=== PATIENT | female | born 1955 | race Caucasian/White ===

== ENCOUNTER 2020-02-03 12:40 | Inpatient (IN) | payer MEDICARE ==
[2020-02-04 00:16] VITALS: BP 100/52
[2020-02-04] MEDS ORDERED: Maalox 30 mL Cup PO PRN (00:27)
[2020-02-04] MEDS ORDERED: Magnesium Hydroxide (MOM) 30 mL UDC PO PRN (00:27)
[2020-02-04] MEDS ORDERED: GLUCAGON HCl 1 MG KIT IM PRN (01:52)
[2020-02-04] MEDS: INSULIN LISPRO SLIDING SCALE 100 UNITS/ML UNIT SUBQ SCH ×4 (07:30→20:50)
[2020-02-04] MEDS: Multivitamin Tab PO SCH (09:09)
[2020-02-04 15:00] LABS: CHOLESTEROL 152 mg/dL (<200)
[2020-02-04 15:01] LABS: LDL CHOLESTEROL 90 mg/dL (75-193); TRIGLYCERIDES 100 mg/dL (<150)
--- NOTE | 2020-02-04 15:29 | History and Physical ---
History of Present Illness - HPI Chief Complaint: Psychosis HPI: * Transferred from [facility] * Patient was transferred on a 5150 hold Vital Signs: Last Vital Signs Temp 97.9 F 02/04/20 06:26 Pulse 96 02/04/20 06:26 Resp 20 02/04/20 06:26 BP 121/83 02/04/20 06:26 Pulse Ox 96 02/04/20 06:26 Past Medical History Cardiovascular: Report: No Pertinent Hx Pulmonary: Report: No Pertinent Hx [employer]PER[employer]OR: Report: No Pertinent Hx GI: Report: No Pertinent Hx Psych: Report: Anxiety, Depression Infectious Disease: Report: Other (UTI) Endocrine: Report: Diabetes Family Medical History - Family Member Mother History Unknown: Yes Ethnicity: Unknown Living Status: Unknown Hx Family Cancer: (unknown) Hx Family Coronary Artery Disease: (unknown) Hx Family Congestive Heart Failure: (unknown) Hx Family Hypertension: (unknown) Hx Family Stroke: (unknown) Hx Family Diabetes: (unknown) Hx Family Seizures: (unknown) Hx Family Dementia: (unknown) Hx Family AIDS: (unknown) Hx Family COPD: (unknown) Hx Family Hepatitis: (unknown) Hx Family Psychiatric Problems: (unknown) Hx Family Tuberculosis: (unknown) Social History Smoke: No Alcohol: Occassional Drugs: Marijuana Lives: With Family - Allergies Allergies/Adverse Reactions: Allergies Allergy/AdvReac Type Severity Reaction Status Date / Time No Known Allergies Allergy Verified 02/04/20 00:08 Review of Systems - Review of Systems Constitutional: Report: No Significant Eyes: Report: No Significant ENT: Report: No Significant Respiratory: Report: No Significant Cardiovascular: Report: No Significant Gastrointestinal: Report: No Significant Genitourinary: Report: No Significant Musculoskeletal: Report: No Significant Skin: Report: No Significant Neurological: Report: No Significant Physical Exam - Physical Exam HEENT: Report: Ears Nose Throat within normal limits, Pharnyx within normal limits Neck: Report: Within normal limits Cardiovascular Systems: Report: Regular, Rate and Rhythm, no murmurs noted Respiratory: Report: Clear to Auscultation of lung erazo, Breath Sounds are within normal limits Abdomen: Report: Non-tender to palpation, Bowel Sounds are within normal limits Back: Report: Inspection of back is within normal limits. Extremities: Report: Non-tender to palpation., Patient had full range of motion , No pedal edema was noted on inspection Skin: Report: Color of skin is within normal limits, Warm, Dry, No Rashes noted of the skin Neuro/Psych: Report: CN II-XII intact, No sensory deficit - Lab Results All Lab Results last 24 hours: Laboratory Results - last 24 hr 02/03/20 02/04/20 02/04/20 23:09 06:18 12:16 POC Glucose 112 H 85 Triglycerides 100 Cholesterol 152 LDL Cholesterol Direct 90 HDL Cholesterol 41 - Assessment Assessment: * Manic Disorder * UTI * DM * Anxiety * Depression * 5150 Hold * Alcohol Abuse * Marijuana Abuse - Plan Plan: * Admitted to GeroPsych Unit to [facility] * Psychiatry Consult * Continue home meds * Obtain labs Cranial Nerve Assessment - CRANIAL NERVES alcohol swab:: Yes Distinguishes movements in peripheral field.:: Yes up, down, sideways:: Yes on forehead, cheeks and chin, chews symmetrically:: Yes FACIAL VII: upper: Frowns Symmetrically:: Yes FACIAL VII: Lower: Smiles Symmetrically:: Yes both ears:: Yes GLOSS-PHARYNGEAL IX: Has gag reflex:: Yes VAGUS X: Can make guttural sounds:: Yes ACCESSORY XI: Shrugs shoulders symmetrically:: Yes tremors or fasciculation's:: Yes - MOTOR spasticity, cogwheel, atrophy, tremor, asterixis, other: Yes - COORDINATION Finger to nose, heel to vagras, RUBEN, gait, Romberg: Yes - SENSORY signs, Brudzinski, Kernig, neck rigidity:: Yes - REFLEXES Brachioradials Right:: Yes Brachioradials Left:: Yes Biceps Right:: Yes Biceps Left:: Yes Triceps Right:: Yes Triceps Left:: Yes Knee Right:: Yes Knee Left:: Yes Ankle Right:: Yes Ankle Left:: Yes Babinski Right:: No Babinski Left:: No
--- NOTE | 2020-02-05 04:20 | Psychiatric Evaluation ---
DATE OF SERVICE: 02/04/2020 The patient was seen and evaluated today. Initial psychiatric evaluation covering for Dr. Arreola. IDENTIFYING DATA: This is a 64-year-old female with a history of schizophrenia, brought here in the Emergency Department and medically cleared from [facility]. She did not want to stay in home. She was found sleeping in someone's garage, brought back for management and aggressive. Today on [id number] evaluation, the patient reports COVID, pedophilia. "I have reported to the FBI and the FBI is underway." PAST MEDICAL HISTORY: History of hysterectomy. PAST PSYCHIATRIC HISTORY: History of psychosis. FAMILY PSYCHIATRIC HISTORY: Denied. SUBSTANCE ABUSE HISTORY: The patient denies illicit drug use, occasional marijuana. ALLERGIES TO MEDICATIONS: NKDA. Further evaluation of the medical history, has a history in the past of diabetes, UTI, hernia. LABORATORY DATA: Reviewed. CURRENT MEDICATIONS: Reviewed. STRENGTHS: Good support, resources. WEAKNESSES: Poor coping skills. ESTIMATED LENGTH OF STAY: Between 5-10 days. PROGNOSIS: Fair. MENTAL STATUS EXAMINATION: Paranoid, delusional, talking about the FBI, COVID, pedophilia, disorganized, poor insight, poor judgment, poor impulse control. PRIMARY DIAGNOSIS: Schizophrenia. SECONDARY DIAGNOSIS: None. MEDICAL DIAGNOSIS: Per medical team. PLAN: 1. Admit. 2. Start Seroquel. 3. Obtain more collateral baseline information. 4. We will continue with both individual and group therapy. [facility]# [id number]
[2020-02-05] MEDS: INSULIN LISPRO SLIDING SCALE 100 UNITS/ML UNIT SUBQ SCH ×4 (06:38→21:01)
[2020-02-05] MEDS: Multivitamin Tab PO SCH (09:39)
--- NOTE | 2020-02-05 22:47 | Progress Notes ---
DATE: 02/05/2020 SUBJECTIVE: The patient was seen and evaluated. The patient's chart reviewed. Today on [id number] evaluation, the patient reports that she is watching all the ____ with COVID. She reports that people are trying to poison her, specifically, the nurses with COVID. EXAMINATION: Delusional, believing that people are trying to poison her with COVID. ASSESSMENT AND PLAN: Aggressive ____ believing that people are trying to poison her. We will continue increasing Seroquel to 50. [facility]# [id number]
[2020-02-06] MEDS: INSULIN LISPRO SLIDING SCALE 100 UNITS/ML UNIT SUBQ SCH ×4 (06:38→20:59)
[2020-02-06] MEDS: Multivitamin Tab PO SCH (08:11)
[2020-02-06 12:45] LABS: WHITE BLOOD COUNT 11.3 K/uL (4.8-10.8)
[2020-02-06 12:46] LABS: % NEUTROPHILS 75.8 % (40-70); BASOPHILS % (AUTO) 0.5 % (0.0-2.0); EOSINOPHILS # (AUTO) 0.1 K/uL (0.0-0.4); EOSINOPHILS % (AUTO) 1.2 % (0-4); HEMATOCRIT 46.3 % (36-48); HEMOGLOBIN 15.8 g/dL (12.0-16.0); LYMPHOCYTES # (AUTO) 1.7 K/uL (1.0-5.5); LYMPHOCYTES % (AUTO) 15.2 % (20.5-51.5); MEAN CORPUSCULAR HEMOGLOBIN 32 pg (27-31); MEAN CORPUSCULAR HGB CONC 34 % (32-36); MEAN CORPUSCULAR VOLUME 94 fL (79.0-98.0); MONOCYTES # (AUTO) 0.8 K/uL (0.0-1.0); MONOCYTES % (AUTO) 7.3 % (1.7-9.3); NEUTROPHILS # (AUTO) 8.5 K/uL (1.8-7.7); PLATELET COUNT 228 K/uL (130-430); RED BLOOD COUNT 4.95 MIL/uL (4.2-6.2); RED CELL DISTRIBUTION WIDTH 13.3 % (9.0-15.0)
[2020-02-06 12:47] LABS: BASOPHILS # (AUTO) 0.1 K/uL (0.0-0.2)
[2020-02-06 13:30] LABS: BILIRUBIN,TOTAL 0.9 mg/dL (0.0-1.0); CALCIUM SERUM 9.2 mg/dL (8.4-10.2); CREATININE - SERUM 1.03 mg/dL (0.70-1.30); POTASSIUM SERUM 3.1 mmol/L (3.5-5.1); TOTAL PROTEIN,SERUM 7.6 g/dL (6.4-8.3)
--- NOTE | 2020-02-06 14:04 | Internal Medicine Prog Note ---
Internal Medicine Subjective - Subjective Service Date: 02/06/20 Patient seen and examined:: without staff Patient is:: awake, interactive, in bed Internal Medicine Objective - Results Result Diagrams: 02/06/20 11:17 02/06/20 11:17 Recent Labs: Laboratory Last Values WBC 11.3 K/uL (4.8-10.8) H 02/06/20 11:17 RBC 4.95 MIL/uL (4.2-6.2) 02/06/20 11:17 Hgb 15.8 g/dL (12.0-16.0) 02/06/20 11:17 Hct 46.3 % (36-48) 02/06/20 11:17 MCV 94 fL (79.0-98.0) 02/06/20 11:17 MCH 32 pg (27-31) H 02/06/20 11:17 MCHC 34 % (32-36) 02/06/20 11:17 RDW 13.3 % (9.0-15.0) 02/06/20 11:17 Plt Count 228 K/uL (130-430) 02/06/20 11:17 MPV 10.7 fl (7.4-10.4) H 02/06/20 11:17 Neut % (Auto) 75.8 % (40-70) H 02/06/20 11:17 Lymph % (Auto) 15.2 % (20.5-51.5) L 02/06/20 11:17 [place] % (Auto) 7.3 % (1.7-9.3) 02/06/20 11:17 Eos % (Auto) 1.2 % (0-4) 02/06/20 11:17 Baso % (Auto) 0.5 % (0.0-2.0) 02/06/20 11:17 Neut # (Auto) 8.5 K/uL (1.8-7.7) H 02/06/20 11:17 Lymph # (Auto) 1.7 K/uL (1.0-5.5) 02/06/20 11:17 [place] # (Auto) 0.8 K/uL (0.0-1.0) 02/06/20 11:17 Eos # (Auto) 0.1 K/uL (0.0-0.4) 02/06/20 11:17 Baso # (Auto) 0.1 K/uL (0.0-0.2) 02/06/20 11:17 Sodium 139 mmol/L (136-145) 02/06/20 11:17 Potassium 3.1 mmol/L (3.5-5.1) L 02/06/20 11:17 Chloride 101 mmol/L (98-107) 02/06/20 11:17 Carbon Dioxide 21 mmol/L (23-29) L 02/06/20 11:17 Anion Gap 20 (5-15) H 02/06/20 11:17 BUN 20 mg/dL (8-21) 02/06/20 11:17 Creatinine 1.03 mg/dL (0.70-1.30) 02/06/20 11:17 Glucose 75 mg/dL (70-99) 02/06/20 11:17 POC Glucose 100 MG/DL (70 - 105) 02/06/20 11:03 Calcium 9.2 mg/dL (8.4-10.2) 02/06/20 11:17 Total Bilirubin 0.9 mg/dL (0.0-1.0) 02/06/20 11:17 AST 33 U/L (10-37) 02/06/20 11:17 ALT 25 U/L (12-78) 02/06/20 11:17 Alkaline Phosphatase 89 U/L (46-116) 02/06/20 11:17 Total Protein 7.6 g/dL (6.4-8.3) 02/06/20 11:17 Albumin 3.8 g/dL (3.4-5.0) 02/06/20 11:17 Triglycerides 100 mg/dL (<150) 02/04/20 12:16 Cholesterol 152 mg/dL (<200) 02/04/20 12:16 LDL Cholesterol Direct 90 mg/dL (75-193) 02/04/20 12:16 HDL Cholesterol 41 mg/dL (23-92) 02/04/20 12:16 - Physical Exam Vitals and I&O: Vital Signs Temp 0 F 02/06/20 06:49 Pulse 90 02/05/20 06:11 Resp 17 02/05/20 20:00 BP 132/84 02/05/20 06:11 Pulse Ox 99 02/05/20 06:11 Intake & Output 02/05/20 02/06/20 02/06/20 18:59 06:59 18:59 Intake Total 800 240 Balance 800 240 Intake: Oral 800 240 Other: # Voids 3 3 # Bowel Movements 0 0 Stool Characteristics Soft Soft Soft Formed Brown Active Medications: Current Medications Acetaminophen (Tylenol) 650 mg PO Q4H PRN PRN Reason: Pain (Mild 1-3) Stop: 04/04/20 00:26 Al Hydrox/Mg Hydrox/Simethicone (Maalox) 30 ml PO Q4HR PRN PRN Reason: GI DISTRESS Stop: 04/04/20 00:26 Dextrose (Glutose 40%) 18.75 gm PO PRN PRN PRN Reason: Blood Glucose less than 70 Stop: 04/04/20 01:51 Glucagon (Glucagen) 1 mg IM PRN PRN PRN Reason: Blood Glucose less than 70 Stop: 04/04/20 01:51 Insulin Human Lispro (Humalog Insulin Sliding Scale) 0 units SUBQ [facility]; Protocol Stop: 04/04/20 07:29 Last Admin: 02/06/20 11:10 Dose: Not Given Lorazepam (Ativan) 0.5 mg PO Q4HR PRN; Protocol PRN Reason: Agitation Stop: 03/05/20 00:26 Magnesium Hydroxide (Milk Of Magnesia) 30 ml PO HS PRN PRN Reason: Constipation Multivitamins/Vitamin C (Theragran) 1 tab PO DAILY ASIF Stop: 04/04/20 08:59 Last Admin: 02/06/20 08:11 Dose: Not Given Quetiapine Fumarate (Seroquel) 50 mg PO HS ASIF; Protocol Stop: 04/05/20 20:59 Last Admin: 02/05/20 21:01 Dose: Not Given Zolpidem Tartrate (Ambien) 5 mg PO HS PRN PRN Reason: Insomnia Stop: 04/04/20 00:26 General: weak HEENT: NC/AT, PERRLA Neck: Supple Lungs: CTAB Cardiovascular: RRR, Normal S1, Normal S2 Abdomen: soft Extremities: clear Internal Medicine Assmt/Plan - Assessment Assessment: 1. DM/HTN 2. Sailaja - Plan Plan: check hga1c check lipid panel continue sliding scale insulin requested home meds d/w r.n. reviewed complete medical records
--- NOTE | 2020-02-06 20:48 | Progress Notes ---
DATE: 02/06/2020 SUBJECTIVE: Case was discussed with staff of the patient, reviewed records. This is a 64-year-old female who was admitted on 02/03/2020 with a history of schizophrenia, came from [facility] to the medical floor. The patient does not want to stay in her home. She was found sleeping in someone's garage, brought back for management of her aggressive behavior. The patient reports COVID, pedophilia. I have reported to the FBI and the FBI is underway. The patient denies drug use. She has no known drug allergy. The patient apparently also has a history of diabetes, UTI, and hernia. The patient was seen by Dr. Romero who initiated the patient on Seroquel 50 mg at bedtime, according to staff, she has been refusing it since admission. The patient when I tried talked to her, she was angry, irritable, and paranoid. She reported that this is pedophilia. She does not trust no one. She is not taking any medication. She does not trust her medication. I don't trust anybody. I do not need to be on medication. Very poor insight, unpredictable, impulsive, needing redirection. Her medication plan was initiated yesterday, so she continues to refuse, we may have to release her. We will continue outpatient group therapy, milieu therapy, and adjust medication as needed. JOB# [id number]
[2020-02-07] MEDS: INSULIN LISPRO SLIDING SCALE 100 UNITS/ML UNIT SUBQ SCH ×4 (06:34→20:31)
[2020-02-07] MEDS: Multivitamin Tab PO SCH (08:01)
[2020-02-07 12:40] LABS: BLOOD, URINE TRACE (NEGATIVE); GLUCOSE,URINE NEGATIVE (NEGATIVE); URINE BILIRUBIN 1+ (NEGATIVE); URINE CLARITY HAZY (CLEAR); URINE COLOR YELLOW (YELLOW); URINE KETONE 3+ (NEGATIVE)
[2020-02-07 12:41] LABS: LEUKOCYTE ESTERASE ,URINE NEGATIVE (NEGATIVE); PROTEIN URINE 1+ (NEGATIVE); URINE NITRATE NEGATIVE (NEGATIVE); UROBILINOGEN,URINE 0.2 (0.2-1.0)
--- NOTE | 2020-02-07 14:46 | Internal Medicine Prog Note ---
Internal Medicine Subjective - Subjective Service Date: 02/07/20 Patient seen and examined:: without staff Patient is:: awake, interactive, in bed Per staff patient has:: no adverse event, no episodes of fall (no fevers, no cough, no sob) Internal Medicine Objective - Results Result Diagrams: 02/06/20 11:17 02/06/20 11:17 Recent Labs: Laboratory Last Values WBC 11.3 K/uL (4.8-10.8) H 02/06/20 11:17 RBC 4.95 MIL/uL (4.2-6.2) 02/06/20 11:17 Hgb 15.8 g/dL (12.0-16.0) 02/06/20 11:17 Hct 46.3 % (36-48) 02/06/20 11:17 MCV 94 fL (79.0-98.0) 02/06/20 11:17 MCH 32 pg (27-31) H 02/06/20 11:17 MCHC 34 % (32-36) 02/06/20 11:17 RDW 13.3 % (9.0-15.0) 02/06/20 11:17 Plt Count 228 K/uL (130-430) 02/06/20 11:17 MPV 10.7 fl (7.4-10.4) H 02/06/20 11:17 Neut % (Auto) 75.8 % (40-70) H 02/06/20 11:17 Lymph % (Auto) 15.2 % (20.5-51.5) L 02/06/20 11:17 [place] % (Auto) 7.3 % (1.7-9.3) 02/06/20 11:17 Eos % (Auto) 1.2 % (0-4) 02/06/20 11:17 Baso % (Auto) 0.5 % (0.0-2.0) 02/06/20 11:17 Neut # (Auto) 8.5 K/uL (1.8-7.7) H 02/06/20 11:17 Lymph # (Auto) 1.7 K/uL (1.0-5.5) 02/06/20 11:17 [place] # (Auto) 0.8 K/uL (0.0-1.0) 02/06/20 11:17 Eos # (Auto) 0.1 K/uL (0.0-0.4) 02/06/20 11:17 Baso # (Auto) 0.1 K/uL (0.0-0.2) 02/06/20 11:17 Sodium 139 mmol/L (136-145) 02/06/20 11:17 Potassium 3.1 mmol/L (3.5-5.1) L 02/06/20 11:17 Chloride 101 mmol/L (98-107) 02/06/20 11:17 Carbon Dioxide 21 mmol/L (23-29) L 02/06/20 11:17 Anion Gap 20 (5-15) H 02/06/20 11:17 BUN 20 mg/dL (8-21) 02/06/20 11:17 Creatinine 1.03 mg/dL (0.70-1.30) 02/06/20 11:17 Glucose 75 mg/dL (70-99) 02/06/20 11:17 POC Glucose 100 MG/DL (70 - 105) 02/06/20 11:03 Calcium 9.2 mg/dL (8.4-10.2) 02/06/20 11:17 Total Bilirubin 0.9 mg/dL (0.0-1.0) 02/06/20 11:17 AST 33 U/L (10-37) 02/06/20 11:17 ALT 25 U/L (12-78) 02/06/20 11:17 Alkaline Phosphatase 89 U/L (46-116) 02/06/20 11:17 Total Protein 7.6 g/dL (6.4-8.3) 02/06/20 11:17 Albumin 3.8 g/dL (3.4-5.0) 02/06/20 11:17 Triglycerides 100 mg/dL (<150) 02/04/20 12:16 Cholesterol 152 mg/dL (<200) 02/04/20 12:16 LDL Cholesterol Direct 90 mg/dL (75-193) 02/04/20 12:16 HDL Cholesterol 41 mg/dL (23-92) 02/04/20 12:16 Urine Color YELLOW (YELLOW) 02/06/20 11:00 Urine Clarity HAZY (CLEAR) H 02/06/20 11:00 Urine pH 6.0 (5.0-8.0) 02/06/20 11:00 Ur Specific [place] >=1.030 (1.005-1.030) H 02/06/20 11:00 Urine Protein 1+ (NEGATIVE) H 02/06/20 11:00 Urine Ketones 3+ (NEGATIVE) H 02/06/20 11:00 Urine Blood TRACE (NEGATIVE) H 02/06/20 11:00 Urine Nitrate NEGATIVE (NEGATIVE) 02/06/20 11:00 Urine Bilirubin 1+ (NEGATIVE) H 02/06/20 11:00 Urine Urobilinogen 0.2 (0.2-1.0) 02/06/20 11:00 Ur Leukocyte Esterase NEGATIVE (NEGATIVE) 02/06/20 11:00 Urine Glucose NEGATIVE (NEGATIVE) 02/06/20 11:00 - Physical Exam Vitals and I&O: Vital Signs Temp 98.3 F 02/07/20 06:23 Pulse 76 02/07/20 06:23 Resp 18 02/07/20 08:00 BP 129/89 02/07/20 06:23 Pulse Ox 97 02/07/20 06:23 Intake & Output 02/06/20 02/07/20 02/07/20 18:59 06:59 18:59 Intake Total 450 240 Balance 450 240 Intake: Oral 450 240 Other: # Voids 3 3 # Bowel Movements 0 0 Stool Characteristics Soft Soft Formed Brown Active Medications: Current Medications Acetaminophen (Tylenol) 650 mg PO Q4H PRN PRN Reason: Pain (Mild 1-3) Stop: 04/04/20 00:26 Al Hydrox/Mg Hydrox/Simethicone (Maalox) 30 ml PO Q4HR PRN PRN Reason: GI DISTRESS Stop: 04/04/20 00:26 Dextrose (Glutose 40%) 18.75 gm PO PRN PRN PRN Reason: BS Below 70 if tolerate po Stop: 04/04/20 01:51 Glucagon (Glucagen) 1 mg IM PRN PRN PRN Reason: BS Below 70 if not tolerate po Stop: 04/04/20 01:51 Insulin Human Lispro (Humalog Insulin Sliding Scale) 0 units SUBQ ACHS ASIF; Protocol Stop: 04/04/20 07:29 Last Admin: 02/07/20 12:23 Dose: Not Given Lorazepam (Ativan) 0.5 mg PO Q4HR PRN; Protocol PRN Reason: Agitation Stop: 03/05/20 00:26 Magnesium Hydroxide (Milk Of Magnesia) 30 ml PO HS PRN PRN Reason: Constipation Multivitamins/Vitamin C (Theragran) 1 tab PO DAILY ASIF Stop: 04/04/20 08:59 Last Admin: 02/07/20 08:01 Dose: Not Given Quetiapine Fumarate (Seroquel) 50 mg PO HS ASIF; Protocol Stop: 04/05/20 20:59 Last Admin: 02/06/20 20:59 Dose: Not Given Zolpidem Tartrate (Ambien) 5 mg PO HS PRN PRN Reason: Insomnia Stop: 04/04/20 00:26 General: weak HEENT: NC/AT, PERRLA Neck: Supple Lungs: CTAB Cardiovascular: RRR, Normal S1, Normal S2 Abdomen: soft Extremities: clear Internal Medicine Assmt/Plan - Assessment Assessment: 1. DM/HTN 2. Rule out Covid-19 - Plan Plan: check hga1c check lipid panel continue sliding scale insulin requested home meds Covid-19 PCR test d/w r.n. reviewed complete medical records
--- NOTE | 2020-02-07 21:03 | Progress Notes ---
DATE: 02/07/2020 Case was discussed with staff of the patient, reviewed records. The patient has been refusing medications. She is paranoid. When I talked to her today, I told her that we talked yesterday. She cannot remember me. She told me that I am fraudulent, I am just billing her insurance without seeing her. Continues to have poor insight, paranoid, unable to make safe plan for self-care, easily agitated. She apparently refused to allow her to have any access to the unit or for the staff to contact him and he apparently found out from the other hospital where she is and he called and was upset. The patient continues to refuse her medications. If she continues to refuse, I will be initiating a Riese on her. We will continue outpatient group therapy, milieu therapy, adjust the medication as needed. JOB# [id number]
[2020-02-08] MEDS: INSULIN LISPRO SLIDING SCALE 100 UNITS/ML UNIT SUBQ SCH ×4 (06:32→21:28)
[2020-02-08] MEDS: Multivitamin Tab PO SCH (08:21)
--- NOTE | 2020-02-08 11:40 | Progress Notes ---
DATE: 02/08/2020 Case was discussed with staff of the patient, reviewed records. The patient seems to be delusional and paranoid. When I tried talk to her, she apparently had her breakfast tray and she eat none of it. She said I do not need that. She said I can see what's in it. She continues to talk about her family being peophiles and that she will not talk to them that she is scared of them. Does not want anything to have to do them including her . The patient is unable to make safe plan for self-care. The patient was found sleeping in someone's garage, was acting aggressive with a history of schizophrenia. The patient believes that she reported this to the FBI and they are underway. The patient is refusing medication again. When I asked if she take she said she will take nothing. She does not trust anybody. She believes she does not need any medication, so this has been brought up with her almost on a daily basis and she does not believe she needs to be on medication, she would not tell me what medication she will be willing to take, i listed side effects and alternatives so I will be initiating a reise. We will continue outpatient group therapy, milieu therapy, and adjust medications as needed. JOB# [id number] KENNY
--- NOTE | 2020-02-08 17:59 | Internal Medicine Prog Note ---
Internal Medicine Subjective - Subjective Service Date: 02/08/20 Patient is:: awake, interactive, in bed Per staff patient has:: no adverse event, no episodes of fall (no fevers, no cough, no sob) Internal Medicine Objective - Results Result Diagrams: 02/06/20 11:17 02/06/20 11:17 Recent Labs: Laboratory Last Values WBC 11.3 K/uL (4.8-10.8) H 02/06/20 11:17 RBC 4.95 MIL/uL (4.2-6.2) 02/06/20 11:17 Hgb 15.8 g/dL (12.0-16.0) 02/06/20 11:17 Hct 46.3 % (36-48) 02/06/20 11:17 MCV 94 fL (79.0-98.0) 02/06/20 11:17 MCH 32 pg (27-31) H 02/06/20 11:17 MCHC 34 % (32-36) 02/06/20 11:17 RDW 13.3 % (9.0-15.0) 02/06/20 11:17 Plt Count 228 K/uL (130-430) 02/06/20 11:17 MPV 10.7 fl (7.4-10.4) H 02/06/20 11:17 Neut % (Auto) 75.8 % (40-70) H 02/06/20 11:17 Lymph % (Auto) 15.2 % (20.5-51.5) L 02/06/20 11:17 [place] % (Auto) 7.3 % (1.7-9.3) 02/06/20 11:17 Eos % (Auto) 1.2 % (0-4) 02/06/20 11:17 Baso % (Auto) 0.5 % (0.0-2.0) 02/06/20 11:17 Neut # (Auto) 8.5 K/uL (1.8-7.7) H 02/06/20 11:17 Lymph # (Auto) 1.7 K/uL (1.0-5.5) 02/06/20 11:17 [place] # (Auto) 0.8 K/uL (0.0-1.0) 02/06/20 11:17 Eos # (Auto) 0.1 K/uL (0.0-0.4) 02/06/20 11:17 Baso # (Auto) 0.1 K/uL (0.0-0.2) 02/06/20 11:17 Sodium 139 mmol/L (136-145) 02/06/20 11:17 Potassium 3.1 mmol/L (3.5-5.1) L 02/06/20 11:17 Chloride 101 mmol/L (98-107) 02/06/20 11:17 Carbon Dioxide 21 mmol/L (23-29) L 02/06/20 11:17 Anion Gap 20 (5-15) H 02/06/20 11:17 BUN 20 mg/dL (8-21) 02/06/20 11:17 Creatinine 1.03 mg/dL (0.70-1.30) 02/06/20 11:17 Glucose 75 mg/dL (70-99) 02/06/20 11:17 POC Glucose 100 MG/DL (70 - 105) 02/06/20 11:03 Calcium 9.2 mg/dL (8.4-10.2) 02/06/20 11:17 Total Bilirubin 0.9 mg/dL (0.0-1.0) 02/06/20 11:17 AST 33 U/L (10-37) 02/06/20 11:17 ALT 25 U/L (12-78) 02/06/20 11:17 Alkaline Phosphatase 89 U/L (46-116) 02/06/20 11:17 Total Protein 7.6 g/dL (6.4-8.3) 02/06/20 11:17 Albumin 3.8 g/dL (3.4-5.0) 02/06/20 11:17 Triglycerides 100 mg/dL (<150) 02/04/20 12:16 Cholesterol 152 mg/dL (<200) 02/04/20 12:16 LDL Cholesterol Direct 90 mg/dL (75-193) 02/04/20 12:16 HDL Cholesterol 41 mg/dL (23-92) 02/04/20 12:16 Urine Color YELLOW (YELLOW) 02/06/20 11:00 Urine Clarity HAZY (CLEAR) H 02/06/20 11:00 Urine pH 6.0 (5.0-8.0) 02/06/20 11:00 Ur Specific [place] >=1.030 (1.005-1.030) H 02/06/20 11:00 Urine Protein 1+ (NEGATIVE) H 02/06/20 11:00 Urine Ketones 3+ (NEGATIVE) H 02/06/20 11:00 Urine Blood TRACE (NEGATIVE) H 02/06/20 11:00 Urine Nitrate NEGATIVE (NEGATIVE) 02/06/20 11:00 Urine Bilirubin 1+ (NEGATIVE) H 02/06/20 11:00 Urine Urobilinogen 0.2 (0.2-1.0) 02/06/20 11:00 Ur Leukocyte Esterase NEGATIVE (NEGATIVE) 02/06/20 11:00 Urine Glucose NEGATIVE (NEGATIVE) 02/06/20 11:00 Coronavirus (PCR) Negative (Negative) 02/05/20 15:45 - Physical Exam Vitals and I&O: Vital Signs Temp 97 F 02/08/20 14:00 Pulse 80 02/08/20 14:00 Resp 18 02/08/20 14:00 BP 136/79 02/08/20 14:00 Pulse Ox 98 02/08/20 14:00 Intake & Output 02/07/20 02/08/20 02/08/20 18:59 06:59 18:59 Intake Total 360 240 120 Balance 360 240 120 Intake: Oral 360 240 120 Other: # Voids 3 3 2 # Bowel Movements 0 0 0 Active Medications: Current Medications Acetaminophen (Tylenol) 650 mg PO Q4H PRN PRN Reason: Pain (Mild 1-3) Stop: 04/04/20 00:26 Al Hydrox/Mg Hydrox/Simethicone (Maalox) 30 ml PO Q4HR PRN PRN Reason: GI DISTRESS Stop: 04/04/20 00:26 Dextrose (Glutose 40%) 18.75 gm PO PRN PRN PRN Reason: BS Below 70 if tolerate po Stop: 04/04/20 01:51 Glucagon (Glucagen) 1 mg IM PRN PRN PRN Reason: BS Below 70 if not tolerate po Stop: 04/04/20 01:51 Insulin Human Lispro (Humalog Insulin Sliding Scale) 0 units SUBQ ACHS ASIF; Protocol Stop: 04/04/20 07:29 Last Admin: 02/08/20 17:19 Dose: Not Given Lorazepam (Ativan) 0.5 mg PO Q4HR PRN; Protocol PRN Reason: Agitation Stop: 03/05/20 00:26 Magnesium Hydroxide (Milk Of Magnesia) 30 ml PO HS PRN PRN Reason: Constipation Multivitamins/Vitamin C (Theragran) 1 tab PO DAILY ASIF Stop: 04/04/20 08:59 Last Admin: 02/08/20 08:21 Dose: Not Given Quetiapine Fumarate (Seroquel) 50 mg PO HS ASIF; Protocol Stop: 04/05/20 20:59 Last Admin: 02/07/20 20:31 Dose: Not Given Zolpidem Tartrate (Ambien) 5 mg PO HS PRN PRN Reason: Insomnia Stop: 04/04/20 00:26 General: weak HEENT: NC/AT, PERRLA Neck: Supple Lungs: CTAB Cardiovascular: RRR, Normal S1, Normal S2 Abdomen: soft Extremities: clear Internal Medicine Assmt/Plan - Assessment Assessment: 1. DM 2. HTN - Plan Plan: check lipid panel continue sliding scale insulin requested home meds await Covid-19 PCR test d/w r.n. reviewed complete medical records
[2020-02-09] MEDS: INSULIN LISPRO SLIDING SCALE 100 UNITS/ML UNIT SUBQ SCH ×4 (06:50→21:10)
[2020-02-09] MEDS: Multivitamin Tab PO SCH ×2 (08:29)
--- NOTE | 2020-02-09 12:17 | Progress Notes ---
DATE: 02/09/2020 Case was discussed with staff of the patient, reviewed records. The patient continues to refuse medication. I asked what medication she will take. She then told me, "I do not need medication. I do not need your services." She reports she is not supposed to be on medication, does not need to be here. Continues to be unable to make safe plan for self-care, unpredictable, impulsive, paranoid, asking me to leave. I told her about, tried to explain to her the side effects and trying to give her an alternative medication. She kept telling me go away go away. Unable to understand the situation and we are trying to reach her. We will continue the patient in group therapy, milieu therapy, and adjust medications as needed. JOB# [id number] KENNY
--- NOTE | 2020-02-09 15:56 | Internal Medicine Prog Note ---
Internal Medicine Subjective - Subjective Service Date: 02/09/20 Patient is:: awake, interactive, in bed Per staff patient has:: no adverse event, no episodes of fall (no fevers, no cough, no sob) Internal Medicine Objective - Results Result Diagrams: 02/06/20 11:17 02/06/20 11:17 Recent Labs: Laboratory Last Values WBC 11.3 K/uL (4.8-10.8) H 02/06/20 11:17 RBC 4.95 MIL/uL (4.2-6.2) 02/06/20 11:17 Hgb 15.8 g/dL (12.0-16.0) 02/06/20 11:17 Hct 46.3 % (36-48) 02/06/20 11:17 MCV 94 fL (79.0-98.0) 02/06/20 11:17 MCH 32 pg (27-31) H 02/06/20 11:17 MCHC 34 % (32-36) 02/06/20 11:17 RDW 13.3 % (9.0-15.0) 02/06/20 11:17 Plt Count 228 K/uL (130-430) 02/06/20 11:17 MPV 10.7 fl (7.4-10.4) H 02/06/20 11:17 Neut % (Auto) 75.8 % (40-70) H 02/06/20 11:17 Lymph % (Auto) 15.2 % (20.5-51.5) L 02/06/20 11:17 [place] % (Auto) 7.3 % (1.7-9.3) 02/06/20 11:17 Eos % (Auto) 1.2 % (0-4) 02/06/20 11:17 Baso % (Auto) 0.5 % (0.0-2.0) 02/06/20 11:17 Neut # (Auto) 8.5 K/uL (1.8-7.7) H 02/06/20 11:17 Lymph # (Auto) 1.7 K/uL (1.0-5.5) 02/06/20 11:17 [place] # (Auto) 0.8 K/uL (0.0-1.0) 02/06/20 11:17 Eos # (Auto) 0.1 K/uL (0.0-0.4) 02/06/20 11:17 Baso # (Auto) 0.1 K/uL (0.0-0.2) 02/06/20 11:17 Sodium 139 mmol/L (136-145) 02/06/20 11:17 Potassium 3.1 mmol/L (3.5-5.1) L 02/06/20 11:17 Chloride 101 mmol/L (98-107) 02/06/20 11:17 Carbon Dioxide 21 mmol/L (23-29) L 02/06/20 11:17 Anion Gap 20 (5-15) H 02/06/20 11:17 BUN 20 mg/dL (8-21) 02/06/20 11:17 Creatinine 1.03 mg/dL (0.70-1.30) 02/06/20 11:17 Glucose 75 mg/dL (70-99) 02/06/20 11:17 POC Glucose 100 MG/DL (70 - 105) 02/06/20 11:03 Calcium 9.2 mg/dL (8.4-10.2) 02/06/20 11:17 Total Bilirubin 0.9 mg/dL (0.0-1.0) 02/06/20 11:17 AST 33 U/L (10-37) 02/06/20 11:17 ALT 25 U/L (12-78) 02/06/20 11:17 Alkaline Phosphatase 89 U/L (46-116) 02/06/20 11:17 Total Protein 7.6 g/dL (6.4-8.3) 02/06/20 11:17 Albumin 3.8 g/dL (3.4-5.0) 02/06/20 11:17 Triglycerides 100 mg/dL (<150) 02/04/20 12:16 Cholesterol 152 mg/dL (<200) 02/04/20 12:16 LDL Cholesterol Direct 90 mg/dL (75-193) 02/04/20 12:16 HDL Cholesterol 41 mg/dL (23-92) 02/04/20 12:16 Urine Color YELLOW (YELLOW) 02/06/20 11:00 Urine Clarity HAZY (CLEAR) H 02/06/20 11:00 Urine pH 6.0 (5.0-8.0) 02/06/20 11:00 Ur Specific [place] >=1.030 (1.005-1.030) H 02/06/20 11:00 Urine Protein 1+ (NEGATIVE) H 02/06/20 11:00 Urine Ketones 3+ (NEGATIVE) H 02/06/20 11:00 Urine Blood TRACE (NEGATIVE) H 02/06/20 11:00 Urine Nitrate NEGATIVE (NEGATIVE) 02/06/20 11:00 Urine Bilirubin 1+ (NEGATIVE) H 02/06/20 11:00 Urine Urobilinogen 0.2 (0.2-1.0) 02/06/20 11:00 Ur Leukocyte Esterase NEGATIVE (NEGATIVE) 02/06/20 11:00 Urine Glucose NEGATIVE (NEGATIVE) 02/06/20 11:00 Coronavirus (PCR) Negative (Negative) 02/05/20 15:45 - Physical Exam Vitals and I&O: Vital Signs Temp 98.2 F 02/09/20 14:00 Pulse 90 02/09/20 14:00 Resp 20 02/09/20 14:00 BP 130/88 02/09/20 14:00 Pulse Ox 96 02/09/20 14:00 Intake & Output 02/08/20 02/09/20 02/09/20 18:59 06:59 18:59 Intake Total 520 120 Balance 520 120 Intake: Oral 520 120 Other: # Voids 3 1 # Bowel Movements 0 0 Active Medications: Current Medications Acetaminophen (Tylenol) 650 mg PO Q4H PRN PRN Reason: Pain (Mild 1-3) Stop: 04/04/20 00:26 Al Hydrox/Mg Hydrox/Simethicone (Maalox) 30 ml PO Q4HR PRN PRN Reason: GI DISTRESS Stop: 04/04/20 00:26 Dextrose (Glutose 40%) 18.75 gm PO PRN PRN PRN Reason: BS Below 70 if tolerate po Stop: 04/04/20 01:51 Glucagon (Glucagen) 1 mg IM PRN PRN PRN Reason: BS Below 70 if not tolerate po Stop: 04/04/20 01:51 Insulin Human Lispro (Humalog Insulin Sliding Scale) 0 units SUBQ ACHS ASIF; Protocol Stop: 04/04/20 07:29 Last Admin: 02/09/20 11:25 Dose: Not Given Lorazepam (Ativan) 0.5 mg PO Q4HR PRN; Protocol PRN Reason: Agitation Stop: 03/05/20 00:26 Magnesium Hydroxide (Milk Of Magnesia) 30 ml PO HS PRN PRN Reason: Constipation Multivitamins/Vitamin C (Theragran) 1 tab PO DAILY ASIF Stop: 04/04/20 08:59 Last Admin: 02/09/20 08:29 Dose: Not Given Quetiapine Fumarate (Seroquel) 50 mg PO HS ASIF; Protocol Stop: 04/05/20 20:59 Last Admin: 02/08/20 21:28 Dose: Not Given Zolpidem Tartrate (Ambien) 5 mg PO HS PRN PRN Reason: Insomnia Stop: 04/04/20 00:26 General: weak HEENT: NC/AT, PERRLA Neck: Supple Lungs: CTAB Cardiovascular: RRR, Normal S1, Normal S2 Abdomen: soft Extremities: clear Internal Medicine Assmt/Plan - Assessment Assessment: 1. DM 2. HTN - Plan Plan: check hemoglobin a1c continue sliding scale insulin d/w r.n. reviewed complete medical records
[2020-02-10] MEDS: INSULIN LISPRO SLIDING SCALE 100 UNITS/ML UNIT SUBQ SCH ×4 (06:31→20:51)
[2020-02-10] MEDS: Multivitamin Tab PO SCH (08:19)
--- NOTE | 2020-02-10 23:09 | Progress Notes ---
DATE: 02/10/2020 Case was discussed with staff of the patient, reviewed records. The patient continues to refuse medication. I try to talk her today, she could not tell me to go away. I asked her again what medication would do take, she says that she is not supposed to be on any medication that she has no problem, religiously preoccupied. She is acting like she is [place] on the cross, continues to be unable to participate in a meaningful conversation or make safe plan for self-care. I listed for her the side effect, so she pretend that is not hearing it; however, I am not sure even she hears it, she is acting psychotic. We do have a Riese hearing scheduled for Thursday. I tried to tell her the alternative, I am not sure if she was able to listen to me and so far she continues to be unpredictable, impulsive, and she is sleeping better. Sometimes she does not eat. We will continue outpatient group therapy, milieu therapy, adjust medication as needed. JOB# [id number]
[2020-02-11] MEDS: INSULIN LISPRO SLIDING SCALE 100 UNITS/ML UNIT SUBQ SCH ×4 (06:37→21:10)
[2020-02-11] MEDS: Multivitamin Tab PO SCH (08:28)
--- NOTE | 2020-02-12 00:36 | Progress Notes ---
DATE: 02/11/[address] Maxwell M.D. SUBJECTIVE: The patient was interviewed. Case was discussed with staff. Chart and records were reviewed. Per the staff, the patient has not showered for over 1 week, potentially 8 days. The patient was visited at bedside. She is disorganized. She is angry, agitated. She is refusing her medications. She has been refusing to shower. Apparently staff prompted her to shower yesterday; however, she attacked staff. She is unable to cooperate at all with the interview due to severity of her mood swings and anger. MENTAL STATUS EXAMINATION: The patient is lying in the hospital bed. She is malodorous. She is disheveled. She has poor eye contact, poor engagement, selectively mute, angry appearing, disorganized thought process, unable to assess for suicidal or homicidal thoughts and appears to be internally preoccupied, appears to be paranoid and angry and suspicious. Alert and oriented x 2. Insight, judgment and impulse control appear to be very poor at this time. ASSESSMENT AND PLAN: The patient requires ongoing acute psychiatric hospitalization given the severity of symptoms. The patient is refusing her medication. However, she does have a Riese hearing scheduled for Thursday. We attempted to review the risks, benefits and alternatives of the medication with the patient; however, she is refusing to engage at all with the discussion and feels that she does not need medications. The patient is also refusing to shower. The patient's odor and stench appears to be critical for her health and also is so severe that it is causing smell throughout the entire unit including her room and causing agitation with her roommates. Therefore, we will prompt the patient again to shower and if the patient becomes agitated and attacked staff, we will have to medicate emergently. We will continue her current medications as prescribed at this time. Once again, we reviewed the risks, benefits and alternatives, she is not engaging. She is not willing to engage at all. She gets angry and not able to participate in the discussion. JOB# [id number]
[2020-02-12] MEDS: INSULIN LISPRO SLIDING SCALE 100 UNITS/ML UNIT SUBQ SCH ×4 (06:47→21:11)
[2020-02-12] MEDS: Multivitamin Tab PO SCH (08:40)
--- NOTE | 2020-02-12 12:41 | Progress Notes ---
DATE: 02/12/[address] Arreola. SUBJECTIVE: The patient was interviewed. Case was discussed with staff. Chart and records were reviewed. The patient continues to be disheveled. She continues to be guarded and suspicious that she is withdrawn and isolates to her room and in her bed. The patient refused to shower for several days in a row, required staff assistance and prompting to shower. She was very irritable. She was very agitated after being cleaned up and showered and she has required emergent Ativan 1 mg x 1. The patient this morning continues to remain in her bed, suspicious, paranoid, not willing to cooperate at all. MENTAL STATUS EXAMINATION: The patient is lying in the hospital bed, improved hygiene, but poorly cooperative. Speech is mumbled and soft. Mood and affect appear to be angered and blunted. Thought process appears to be somewhat loose. Unable to assess for any suicidal or homicidal thoughts. The patient does appear to be paranoid and internally preoccupied. Insight, judgment and impulse control appear to be quite poor at this time. ASSESSMENT AND PLAN: The patient requires ongoing acute psychiatric hospitalization given the severity of her condition. We will increase the patient's Seroquel to 75 mg p.o. at bedtime. No side effects have been noted. We will also encourage the patient to verbalize her needs. Encourage the patient to participate in group and milieu therapy. Continue to attend to her hygiene. [facility]# [id number]
[2020-02-13] MEDS: INSULIN LISPRO SLIDING SCALE 100 UNITS/ML UNIT SUBQ SCH ×4 (06:43→20:46)
[2020-02-13] MEDS: Multivitamin Tab PO SCH (09:58)
--- NOTE | 2020-02-13 11:43 | Internal Medicine Prog Note ---
Internal Medicine Subjective - Subjective Service Date: 02/13/20 Patient seen and examined:: without staff Patient is:: awake, interactive, in bed Per staff patient has:: no adverse event, no episodes of fall (no fevers, no cough, no sob) Internal Medicine Objective - Results Result Diagrams: 02/06/20 11:17 02/06/20 11:17 Recent Labs: Laboratory Last Values WBC 11.3 K/uL (4.8-10.8) H 02/06/20 11:17 RBC 4.95 MIL/uL (4.2-6.2) 02/06/20 11:17 Hgb 15.8 g/dL (12.0-16.0) 02/06/20 11:17 Hct 46.3 % (36-48) 02/06/20 11:17 MCV 94 fL (79.0-98.0) 02/06/20 11:17 MCH 32 pg (27-31) H 02/06/20 11:17 MCHC 34 % (32-36) 02/06/20 11:17 RDW 13.3 % (9.0-15.0) 02/06/20 11:17 Plt Count 228 K/uL (130-430) 02/06/20 11:17 MPV 10.7 fl (7.4-10.4) H 02/06/20 11:17 Neut % (Auto) 75.8 % (40-70) H 02/06/20 11:17 Lymph % (Auto) 15.2 % (20.5-51.5) L 02/06/20 11:17 [place] % (Auto) 7.3 % (1.7-9.3) 02/06/20 11:17 Eos % (Auto) 1.2 % (0-4) 02/06/20 11:17 Baso % (Auto) 0.5 % (0.0-2.0) 02/06/20 11:17 Neut # (Auto) 8.5 K/uL (1.8-7.7) H 02/06/20 11:17 Lymph # (Auto) 1.7 K/uL (1.0-5.5) 02/06/20 11:17 [place] # (Auto) 0.8 K/uL (0.0-1.0) 02/06/20 11:17 Eos # (Auto) 0.1 K/uL (0.0-0.4) 02/06/20 11:17 Baso # (Auto) 0.1 K/uL (0.0-0.2) 02/06/20 11:17 Sodium 139 mmol/L (136-145) 02/06/20 11:17 Potassium 3.1 mmol/L (3.5-5.1) L 02/06/20 11:17 Chloride 101 mmol/L (98-107) 02/06/20 11:17 Carbon Dioxide 21 mmol/L (23-29) L 02/06/20 11:17 Anion Gap 20 (5-15) H 02/06/20 11:17 BUN 20 mg/dL (8-21) 02/06/20 11:17 Creatinine 1.03 mg/dL (0.70-1.30) 02/06/20 11:17 Glucose 75 mg/dL (70-99) 02/06/20 11:17 POC Glucose 100 MG/DL (70 - 105) 02/06/20 11:03 Calcium 9.2 mg/dL (8.4-10.2) 02/06/20 11:17 Total Bilirubin 0.9 mg/dL (0.0-1.0) 02/06/20 11:17 AST 33 U/L (10-37) 02/06/20 11:17 ALT 25 U/L (12-78) 02/06/20 11:17 Alkaline Phosphatase 89 U/L (46-116) 02/06/20 11:17 Total Protein 7.6 g/dL (6.4-8.3) 02/06/20 11:17 Albumin 3.8 g/dL (3.4-5.0) 02/06/20 11:17 Triglycerides 100 mg/dL (<150) 02/04/20 12:16 Cholesterol 152 mg/dL (<200) 02/04/20 12:16 LDL Cholesterol Direct 90 mg/dL (75-193) 02/04/20 12:16 HDL Cholesterol 41 mg/dL (23-92) 02/04/20 12:16 Urine Color YELLOW (YELLOW) 02/06/20 11:00 Urine Clarity HAZY (CLEAR) H 02/06/20 11:00 Urine pH 6.0 (5.0-8.0) 02/06/20 11:00 Ur Specific [place] >=1.030 (1.005-1.030) H 02/06/20 11:00 Urine Protein 1+ (NEGATIVE) H 02/06/20 11:00 Urine Ketones 3+ (NEGATIVE) H 02/06/20 11:00 Urine Blood TRACE (NEGATIVE) H 02/06/20 11:00 Urine Nitrate NEGATIVE (NEGATIVE) 02/06/20 11:00 Urine Bilirubin 1+ (NEGATIVE) H 02/06/20 11:00 Urine Urobilinogen 0.2 (0.2-1.0) 02/06/20 11:00 Ur Leukocyte Esterase NEGATIVE (NEGATIVE) 02/06/20 11:00 Urine Glucose NEGATIVE (NEGATIVE) 02/06/20 11:00 Coronavirus (PCR) Negative (Negative) 02/05/20 15:45 - Physical Exam Vitals and I&O: Vital Signs Temp 98.1 F 02/13/20 06:04 Pulse 101 02/13/20 06:04 Resp 18 02/13/20 08:00 BP 113/87 02/13/20 06:04 Pulse Ox 96 02/13/20 06:04 Intake & Output 02/12/20 02/13/20 02/13/20 18:59 06:59 18:59 Intake Total 750 240 Output Total 1 Balance 750 239 Intake: Oral 750 240 Output: Urine/Stool Mix 1 Other: # Voids 1 Active Medications: Current Medications Acetaminophen (Tylenol) 650 mg PO Q4H PRN PRN Reason: Pain (Mild 1-3) Stop: 04/04/20 00:26 Al Hydrox/Mg Hydrox/Simethicone (Maalox) 30 ml PO Q4HR PRN PRN Reason: GI DISTRESS Stop: 04/04/20 00:26 Dextrose (Glutose 40%) 18.75 gm PO PRN PRN PRN Reason: BS Below 70 if tolerate po Stop: 04/04/20 01:51 Glucagon (Glucagen) 1 mg IM PRN PRN PRN Reason: BS Below 70 if not tolerate po Stop: 04/04/20 01:51 Insulin Human Lispro (Humalog Insulin Sliding Scale) 0 units SUBQ ACHS ASIF; Protocol Stop: 04/04/20 07:29 Last Admin: 02/13/20 06:43 Dose: Not Given Lorazepam (Ativan) 0.5 mg PO Q4HR PRN; Protocol PRN Reason: Agitation Stop: 03/05/20 00:26 Magnesium Hydroxide (Milk Of Magnesia) 30 ml PO HS PRN PRN Reason: Constipation Multivitamins/Vitamin C (Theragran) 1 tab PO DAILY ASIF Stop: 04/04/20 08:59 Last Admin: 02/13/20 09:58 Dose: Not Given Quetiapine Fumarate (Seroquel) 75 mg PO HS ASIF; Protocol Stop: 04/12/20 20:59 Last Admin: 02/12/20 21:12 Dose: 75 mg Zolpidem Tartrate (Ambien) 5 mg PO HS PRN PRN Reason: Insomnia Stop: 04/04/20 00:26 General: weak HEENT: NC/AT, PERRLA Neck: Supple Lungs: CTAB Cardiovascular: RRR, Normal S1, Normal S2 Abdomen: soft Extremities: clear Internal Medicine Assmt/Plan - Assessment Assessment: 1. DM 2. HTN 3. Hypokalemia - Plan Plan: repeat BMP continue sliding scale insulin d/w r.n. reviewed complete medical records Nutritional Asmnt/Malnutr-PDOC - Dietary Evaluation Malnutrition Findings (Please click <Entered> for more info): Nutritional Asmnt/Malnutrition Start: 02/11/20 10: 33 Text: Status: Complete Freq: Protocol: Document 02/11/20 10:33 KATT (Rec: 02/11/20 10:44 [id number]) Nutritional Asmnt/Malnutrition Patient General Information Nutritional Screening Low Risk Diagnosis Psychosis Pertinent Medical Hx/Surgical Hx DM, hiatal hernia Subjective Information Patient was transferred from [facility]. Current diet order providing ~ 2100 kcal, 74 gm protein, with current diet intake of 0-25% of meals, average intake ~525 kcal, 18gm protein. Current Diet Order/ Nutrition Support Regular Patient / S.O Not Indicated Pertinent Medications maalox, Glucagon, Humalog, MOM , Theragran Pertinent Labs (02/05) K 3.1 Nutritional Hx/Data Height 1.63 m Height (Calculated Centimeters) 162.6 Current Weight (lbs) 84.368 kg Weight (Calculated Kilograms) 84.4 Weight (Calculated Grams) 33781.2 [place] Body Weight 120 % [place] Body Weight 155 Body Mass Index (BMI) 31.9 Recent Weight Change No Weight Status Obese GI Symptoms GI Symptoms None Last BM not noted Difficult in: None Food Allergies No Cultural/Ethnic/Orthodoxy Belief not indicated Usual diet at home unknown Skin Integrity/Comment: Dryness, Giorgi 21 Current %PO Negligible < 25% Estimated Nutritional Goals BEE in Kcals: Adj wt of IBW Calories/Kcals/Kg 62kg adj BW 25-30 kcal/kg Kcals Calculated ~1349-8193 kcal/day Protein: Adj wt of IBW Protein g/kgm/kg Protein Calculated ~60gm/day Fluid: ml ~8517-2532 kcal/day Nutritional Problem 1. Problem Problem Inadequate oral intake related to Etiology poor appetite aeb Signs/Symptoms: PO intake <25% of meals Intervention/Recommendation Comments 1. Continue regular diet as tolerated by patient. 2. Start Ensure Enlive TID for added calories and protein. Expected Outcomes/Goals Expected Outcomes/Goals Oral intake >75% of meals, weight stable or trend toward IBW, nutrition related labs WNL F/U MR 02/13-
[2020-02-13 13:01] LABS: CALCIUM SERUM 9.1 mg/dL (8.4-10.2); CREATININE - SERUM 1.32 mg/dL (0.70-1.30)
[2020-02-13 13:06] LABS: POTASSIUM SERUM 2.8 mmol/L (3.5-5.1)
[2020-02-13] MEDS ORDERED: Potassium Chloride 20 mEq ER Tab PO ONE ×2 (13:17→17:16)
[2020-02-13] MEDS: Potassium Chloride 20 mEq ER Tab PO SCH ×2 (13:30→17:34)
[2020-02-13] MEDS ORDERED: Haloperidol Lactate 5 mg/mL 1mL Vial IM PRN (14:19)
[2020-02-13] MEDS ORDERED: Benztropine 1 mg/mL 2 mL Vial IM ONE (14:24)
[2020-02-13] MEDS ORDERED: Benztropine 1 mg/mL 2 mL Vial IM PRN (14:30)
--- NOTE | 2020-02-13 19:34 | Progress Notes ---
DATE: 02/13/2020 Case was discussed with staff of the patient, reviewed records. The patient had a Riese hearing today. The patient refused to attend. The patient continues to be delusional. Continues to have poor insight. She is still refusing her medication. So far, she is still not taking her medication. The Riese hearing was upheld by the furniture mover driver and the patient will be started on Haldol instead and we so far discussed side effects; however, she is still rambling, continues to be unable to make safe plan for self-care, easily agitated, delusional, and paranoid. I will continue outpatient group therapy, milieu therapy, adjust medication as needed. JOB# [id number]
[2020-02-14] MEDS: INSULIN LISPRO SLIDING SCALE 100 UNITS/ML UNIT SUBQ SCH ×4 (06:41→20:59)
[2020-02-14] MEDS: Multivitamin Tab PO SCH (09:47)
--- NOTE | 2020-02-14 15:27 | Internal Medicine Prog Note ---
Internal Medicine Subjective - Subjective Service Date: 02/14/20 Patient seen and examined:: without staff Patient is:: awake, interactive, in bed Per staff patient has:: no adverse event, no episodes of fall (no fevers, no cough, no sob) Internal Medicine Objective - Results Result Diagrams: 02/06/20 11:17 02/13/20 11:12 Recent Labs: Laboratory Last Values WBC 11.3 K/uL (4.8-10.8) H 02/06/20 11:17 RBC 4.95 MIL/uL (4.2-6.2) 02/06/20 11:17 Hgb 15.8 g/dL (12.0-16.0) 02/06/20 11:17 Hct 46.3 % (36-48) 02/06/20 11:17 MCV 94 fL (79.0-98.0) 02/06/20 11:17 MCH 32 pg (27-31) H 02/06/20 11:17 MCHC 34 % (32-36) 02/06/20 11:17 RDW 13.3 % (9.0-15.0) 02/06/20 11:17 Plt Count 228 K/uL (130-430) 02/06/20 11:17 MPV 10.7 fl (7.4-10.4) H 02/06/20 11:17 Neut % (Auto) 75.8 % (40-70) H 02/06/20 11:17 Lymph % (Auto) 15.2 % (20.5-51.5) L 02/06/20 11:17 [place] % (Auto) 7.3 % (1.7-9.3) 02/06/20 11:17 Eos % (Auto) 1.2 % (0-4) 02/06/20 11:17 Baso % (Auto) 0.5 % (0.0-2.0) 02/06/20 11:17 Neut # (Auto) 8.5 K/uL (1.8-7.7) H 02/06/20 11:17 Lymph # (Auto) 1.7 K/uL (1.0-5.5) 02/06/20 11:17 [place] # (Auto) 0.8 K/uL (0.0-1.0) 02/06/20 11:17 Eos # (Auto) 0.1 K/uL (0.0-0.4) 02/06/20 11:17 Baso # (Auto) 0.1 K/uL (0.0-0.2) 02/06/20 11:17 Sodium 136 mmol/L (136-145) 02/13/20 11:12 Potassium 2.8 mmol/L (3.5-5.1) L* 02/13/20 11:12 Chloride 100 mmol/L (98-107) 02/13/20 11:12 Carbon Dioxide 23 mmol/L (23-29) 02/13/20 11:12 Anion Gap 16 (5-15) H 02/13/20 11:12 BUN 25 mg/dL (8-21) H 02/13/20 11:12 Creatinine 1.32 mg/dL (0.70-1.30) H 02/13/20 11:12 Glucose 79 mg/dL (70-99) 02/13/20 11:12 POC Glucose 85 MG/DL (70 - 105) 02/14/20 06:17 Calcium 9.1 mg/dL (8.4-10.2) 02/13/20 11:12 Total Bilirubin 0.9 mg/dL (0.0-1.0) 02/06/20 11:17 AST 33 U/L (10-37) 02/06/20 11:17 ALT 25 U/L (12-78) 02/06/20 11:17 Alkaline Phosphatase 89 U/L (46-116) 02/06/20 11:17 Total Protein 7.6 g/dL (6.4-8.3) 02/06/20 11:17 Albumin 3.8 g/dL (3.4-5.0) 02/06/20 11:17 Triglycerides 100 mg/dL (<150) 02/04/20 12:16 Cholesterol 152 mg/dL (<200) 02/04/20 12:16 LDL Cholesterol Direct 90 mg/dL (75-193) 02/04/20 12:16 HDL Cholesterol 41 mg/dL (23-92) 02/04/20 12:16 Urine Color YELLOW (YELLOW) 02/06/20 11:00 Urine Clarity HAZY (CLEAR) H 02/06/20 11:00 Urine pH 6.0 (5.0-8.0) 02/06/20 11:00 Ur Specific [place] >=1.030 (1.005-1.030) H 02/06/20 11:00 Urine Protein 1+ (NEGATIVE) H 02/06/20 11:00 Urine Ketones 3+ (NEGATIVE) H 02/06/20 11:00 Urine Blood TRACE (NEGATIVE) H 02/06/20 11:00 Urine Nitrate NEGATIVE (NEGATIVE) 02/06/20 11:00 Urine Bilirubin 1+ (NEGATIVE) H 02/06/20 11:00 Urine Urobilinogen 0.2 (0.2-1.0) 02/06/20 11:00 Ur Leukocyte Esterase NEGATIVE (NEGATIVE) 02/06/20 11:00 Urine Glucose NEGATIVE (NEGATIVE) 02/06/20 11:00 Coronavirus (PCR) Negative (Negative) 02/05/20 15:45 - Physical Exam Vitals and I&O: Vital Signs Temp 98.6 F 02/14/20 06:48 Pulse 106 02/14/20 06:48 Resp 19 02/14/20 06:48 BP 112/72 02/14/20 06:48 Pulse Ox 96 02/14/20 06:48 Intake & Output 02/13/20 02/14/20 02/14/20 18:59 06:59 18:59 Intake Total 570 120 Balance 570 120 Intake: Oral 450 120 Other 120 Other: # Voids 3 3 # Bowel Movements 0 0 Active Medications: Current Medications Acetaminophen (Tylenol) 650 mg PO Q4H PRN PRN Reason: Pain (Mild 1-3) Stop: 04/04/20 00:26 Al Hydrox/Mg Hydrox/Simethicone (Maalox) 30 ml PO Q4HR PRN PRN Reason: GI DISTRESS Stop: 04/04/20 00:26 Benztropine Mesylate (Cogentin) 0.5 mg PO BID ASIF Stop: 04/13/20 16:59 Last Admin: 02/14/20 09:47 Dose: 0.5 mg Benztropine Mesylate (Cogentin) 0.5 mg IM BID PRN PRN Reason: EPS (TO GIVE WITH HALDOL IM) Stop: 04/13/20 14:25 Dextrose (Glutose 40%) 18.75 gm PO PRN PRN PRN Reason: BS Below 70 if tolerate po Stop: 04/04/20 01:51 Glucagon (Glucagen) 1 mg IM PRN PRN PRN Reason: BS Below 70 if not tolerate po Stop: 04/04/20 01:51 Haloperidol (Haldol) 2 mg PO BID [facility]; Protocol Stop: 04/13/20 16:59 Last Admin: 02/14/20 09:47 Dose: 2 mg Haloperidol Lactate (Haldol) 2 mg IM BID PRN PRN Reason: Agitation Stop: 04/13/20 14:18 Insulin Human Lispro (Humalog Insulin Sliding Scale) 0 units SUBQ ACHS ASIF; Protocol Stop: 04/04/20 07:29 Last Admin: 02/14/20 12:10 Dose: Not Given Lorazepam (Ativan) 0.5 mg PO Q4HR PRN; Protocol PRN Reason: Agitation Stop: 03/05/20 00:26 Magnesium Hydroxide (Milk Of Magnesia) 30 ml PO HS PRN PRN Reason: Constipation Multivitamins/Vitamin C (Theragran) 1 tab PO DAILY ASIF Stop: 04/04/20 08:59 Last Admin: 02/14/20 09:47 Dose: 1 tab Quetiapine Fumarate 25 mg/ (Quetiapine Fumarate 50 mg) 75 mg PO HS ASIF Stop: 04/14/20 20:59 Zolpidem Tartrate (Ambien) 5 mg PO HS PRN PRN Reason: Insomnia Stop: 04/04/20 00:26 General: weak HEENT: NC/AT, PERRLA Neck: Supple Lungs: CTAB Cardiovascular: RRR, Normal S1, Normal S2 Abdomen: soft Extremities: clear Neurological: no change Internal Medicine Assmt/Plan - Assessment Assessment: 1. DM 2. HTN 3. Hypokalemia - Plan Plan: repeat bmp await results kdur given x 2 doses no obvious cause of hypokalemia d/w r.n. reviewed complete medical records Nutritional Asmnt/Malnutr-PDOC - Dietary Evaluation Malnutrition Findings (Please click <Entered> for more info): Nutritional Asmnt/Malnutrition Start: 02/11/20 10: 33 Text: Status: Complete Freq: Protocol: Document 02/11/20 10:33 KATT (Rec: 02/11/20 10:44 KATT ROD- [email or web address]) Nutritional Asmnt/Malnutrition Patient General Information Nutritional Screening Low Risk Diagnosis Psychosis Pertinent Medical Hx/Surgical Hx DM, hiatal hernia Subjective Information Patient was transferred from [facility]. Current diet order providing ~ 2100 kcal, 74 gm protein, with current diet intake of 0-25% of meals, average intake ~525 kcal, 18gm protein. Current Diet Order/ Nutrition Support Regular Patient / S.O Not Indicated Pertinent Medications maalox, Glucagon, Humalog, MOM , Theragran Pertinent Labs (02/05) K 3.1 Nutritional Hx/Data Height 1.63 m Height (Calculated Centimeters) 162.6 Current Weight (lbs) 84.368 kg Weight (Calculated Kilograms) 84.4 Weight (Calculated Grams) 63874.2 [place] Body Weight 120 % [place] Body Weight 155 Body Mass Index (BMI) 31.9 Recent Weight Change No Weight Status Obese GI Symptoms GI Symptoms None Last BM not noted Difficult in: None Food Allergies No Cultural/Ethnic/Denominational Belief not indicated Usual diet at home unknown Skin Integrity/Comment: Dryness, Giorgi 21 Current %PO Negligible < 25% Estimated Nutritional Goals BEE in Kcals: Adj wt of IBW Calories/Kcals/Kg 62kg adj BW 25-30 kcal/kg Kcals Calculated ~6327-8984 kcal/day Protein: Adj wt of IBW Protein g/kgm/kg Protein Calculated ~60gm/day Fluid: ml ~6734-6764 kcal/day Nutritional Problem 1. Problem Problem Inadequate oral intake related to Etiology poor appetite aeb Signs/Symptoms: PO intake <25% of meals Intervention/Recommendation Comments 1. Continue regular diet as tolerated by patient. 2. Start Ensure Enlive TID for added calories and protein. Expected Outcomes/Goals Expected Outcomes/Goals Oral intake >75% of meals, weight stable or trend toward IBW, nutrition related labs WNL F/U MR 02/13-
--- NOTE | 2020-02-14 15:33 | Progress Notes ---
DATE: 02/14/2020 Case was discussed with staff of the patient and reviewed records. The patient continues to be paranoid and delusional. She told me that she is watching, she is registering everything. She continues to have poor insight. She was riesed yesterday and was started on Haldol and she has been getting injections if she refuses oral medications. The staff reports that now that we have her on reise she is tending to take her medications. I am not sure how long this will last. No side effects to the medication, no sedation, no nausea, and no extrapyramidal symptoms. She continues to be delusional and internally preoccupied. She continues to have poor insight and unable to tell me the date, where she is, why she is here. She believes she does not need to be here. She has no mental illness, that this is all fraudulent and that we are just trying to bill her insurance. We will continue to work with the patient in group therapy, milieu therapy, and adjust medications as needed. JOB# [id number] KENNY
[2020-02-14 17:23] LABS: CALCIUM SERUM 9.9 mg/dL (8.4-10.2); CREATININE - SERUM 1.25 mg/dL (0.70-1.30); POTASSIUM SERUM 3.6 mmol/L (3.5-5.1)
[2020-02-15] MEDS: INSULIN LISPRO SLIDING SCALE 100 UNITS/ML UNIT SUBQ SCH ×4 (06:44→21:19)
[2020-02-15] MEDS: Multivitamin Tab PO SCH (08:49)
--- NOTE | 2020-02-15 17:00 | Internal Medicine Prog Note ---
Internal Medicine Subjective - Subjective Service Date: 02/15/20 Patient seen and examined:: without staff Patient is:: awake, interactive, in bed Per staff patient has:: no adverse event, no episodes of fall (no fevers, no cough, no sob) Internal Medicine Objective - Results Result Diagrams: 02/06/20 11:17 02/14/20 15:21 Recent Labs: Laboratory Last Values WBC 11.3 K/uL (4.8-10.8) H 02/06/20 11:17 RBC 4.95 MIL/uL (4.2-6.2) 02/06/20 11:17 Hgb 15.8 g/dL (12.0-16.0) 02/06/20 11:17 Hct 46.3 % (36-48) 02/06/20 11:17 MCV 94 fL (79.0-98.0) 02/06/20 11:17 MCH 32 pg (27-31) H 02/06/20 11:17 MCHC 34 % (32-36) 02/06/20 11:17 RDW 13.3 % (9.0-15.0) 02/06/20 11:17 Plt Count 228 K/uL (130-430) 02/06/20 11:17 MPV 10.7 fl (7.4-10.4) H 02/06/20 11:17 Neut % (Auto) 75.8 % (40-70) H 02/06/20 11:17 Lymph % (Auto) 15.2 % (20.5-51.5) L 02/06/20 11:17 [place] % (Auto) 7.3 % (1.7-9.3) 02/06/20 11:17 Eos % (Auto) 1.2 % (0-4) 02/06/20 11:17 Baso % (Auto) 0.5 % (0.0-2.0) 02/06/20 11:17 Neut # (Auto) 8.5 K/uL (1.8-7.7) H 02/06/20 11:17 Lymph # (Auto) 1.7 K/uL (1.0-5.5) 02/06/20 11:17 [place] # (Auto) 0.8 K/uL (0.0-1.0) 02/06/20 11:17 Eos # (Auto) 0.1 K/uL (0.0-0.4) 02/06/20 11:17 Baso # (Auto) 0.1 K/uL (0.0-0.2) 02/06/20 11:17 Sodium 138 mmol/L (136-145) 02/14/20 15:21 Potassium 3.6 mmol/L (3.5-5.1) 02/14/20 15:21 Chloride 103 mmol/L (98-107) 02/14/20 15:21 Carbon Dioxide 28 mmol/L (23-29) 02/14/20 15:21 Anion Gap 11 (5-15) 02/14/20 15:21 BUN 28 mg/dL (8-21) H 02/14/20 15:21 Creatinine 1.25 mg/dL (0.70-1.30) 02/14/20 15:21 Glucose 118 mg/dL (70-99) H 02/14/20 15:21 POC Glucose 116 MG/DL (70 - 105) H 02/15/20 16:09 Calcium 9.9 mg/dL (8.4-10.2) 02/14/20 15:21 Total Bilirubin 0.9 mg/dL (0.0-1.0) 02/06/20 11:17 AST 33 U/L (10-37) 02/06/20 11:17 ALT 25 U/L (12-78) 02/06/20 11:17 Alkaline Phosphatase 89 U/L (46-116) 02/06/20 11:17 Total Protein 7.6 g/dL (6.4-8.3) 02/06/20 11:17 Albumin 3.8 g/dL (3.4-5.0) 02/06/20 11:17 Triglycerides 100 mg/dL (<150) 02/04/20 12:16 Cholesterol 152 mg/dL (<200) 02/04/20 12:16 LDL Cholesterol Direct 90 mg/dL (75-193) 02/04/20 12:16 HDL Cholesterol 41 mg/dL (23-92) 02/04/20 12:16 Urine Color YELLOW (YELLOW) 02/06/20 11:00 Urine Clarity HAZY (CLEAR) H 02/06/20 11:00 Urine pH 6.0 (5.0-8.0) 02/06/20 11:00 Ur Specific [place] >=1.030 (1.005-1.030) H 02/06/20 11:00 Urine Protein 1+ (NEGATIVE) H 02/06/20 11:00 Urine Ketones 3+ (NEGATIVE) H 02/06/20 11:00 Urine Blood TRACE (NEGATIVE) H 02/06/20 11:00 Urine Nitrate NEGATIVE (NEGATIVE) 02/06/20 11:00 Urine Bilirubin 1+ (NEGATIVE) H 02/06/20 11:00 Urine Urobilinogen 0.2 (0.2-1.0) 02/06/20 11:00 Ur Leukocyte Esterase NEGATIVE (NEGATIVE) 02/06/20 11:00 Urine Glucose NEGATIVE (NEGATIVE) 02/06/20 11:00 Coronavirus (PCR) Negative (Negative) 02/05/20 15:45 - Physical Exam Vitals and I&O: Vital Signs Temp 97.7 F 02/15/20 14:00 Pulse 99 02/15/20 14:00 Resp 18 02/15/20 14:00 BP 97/68 02/15/20 14:00 Pulse Ox 96 02/15/20 14:00 Intake & Output 02/14/20 02/15/20 02/15/20 18:59 06:59 18:59 Intake Total 600 360 Balance 600 360 Intake: Oral 600 360 Other: # Voids 4 3 Active Medications: Current Medications Acetaminophen (Tylenol) 650 mg PO Q4H PRN PRN Reason: Pain (Mild 1-3) Stop: 04/04/20 00:26 Al Hydrox/Mg Hydrox/Simethicone (Maalox) 30 ml PO Q4HR PRN PRN Reason: GI DISTRESS Stop: 04/04/20 00:26 Benztropine Mesylate (Cogentin) 0.5 mg PO BID ASIF Stop: 04/13/20 16:59 Last Admin: 02/15/20 16:10 Dose: 0.5 mg Benztropine Mesylate (Cogentin) 0.5 mg IM BID PRN PRN Reason: EPS (TO GIVE WITH HALDOL IM) Stop: 04/13/20 14:25 Dextrose (Glutose 40%) 18.75 gm PO PRN PRN PRN Reason: BS Below 70 if tolerate po Stop: 04/04/20 01:51 Glucagon (Glucagen) 1 mg IM PRN PRN PRN Reason: BS Below 70 if not tolerate po Stop: 04/04/20 01:51 Haloperidol (Haldol) 2 mg PO BID [facility]; Protocol Stop: 04/13/20 16:59 Last Admin: 02/15/20 16:10 Dose: 2 mg Haloperidol Lactate (Haldol) 2 mg IM BID PRN PRN Reason: Agitation Stop: 04/13/20 14:18 Insulin Human Lispro (Humalog Insulin Sliding Scale) 0 units SUBQ ACHS [facility]; Protocol Stop: 04/04/20 07:29 Last Admin: 02/15/20 16:10 Dose: Not Given Lorazepam (Ativan) 0.5 mg PO Q4HR PRN; Protocol PRN Reason: Agitation Stop: 03/05/20 00:26 Magnesium Hydroxide (Milk Of Magnesia) 30 ml PO HS PRN PRN Reason: Constipation Multivitamins/Vitamin C (Theragran) 1 tab PO DAILY [facility] Stop: 04/04/20 08:59 Last Admin: 02/15/20 08:49 Dose: 1 tab Quetiapine Fumarate 25 mg/ (Quetiapine Fumarate 50 mg) 75 mg PO HS ASIF Stop: 04/14/20 20:59 Last Admin: 02/14/20 21:00 Dose: 75 mg Zolpidem Tartrate (Ambien) 5 mg PO HS PRN PRN Reason: Insomnia Stop: 04/04/20 00:26 General: weak HEENT: NC/AT, PERRLA Neck: Supple Lungs: CTAB Cardiovascular: RRR, Normal S1, Normal S2 Abdomen: soft, +GT - discharge Extremities: clear Neurological: no change Internal Medicine Assmt/Plan - Assessment Assessment: 1. DM 2. HTN 3. Hypokalemia - Plan Plan: d/w r.n. reviewed complete medical records Nutritional Asmnt/Malnutr-PDOC - Dietary Evaluation Malnutrition Findings (Please click <Entered> for more info): Nutritional Asmnt/Malnutrition Start: 02/11/20 10: 33 Text: Status: Complete Freq: Protocol: Document 02/11/20 10:33 [email or web address] (Rec: 02/11/20 10:44 [email or web address] [id number]) Nutritional Asmnt/Malnutrition Patient General Information Nutritional Screening Low Risk Diagnosis Psychosis Pertinent Medical Hx/Surgical Hx DM, hiatal hernia Subjective Information Patient was transferred from [facility]. Current diet order providing ~ 2100 kcal, 74 gm protein, with current diet intake of 0-25% of meals, average intake ~525 kcal, 18gm protein. Current Diet Order/ Nutrition Support Regular Patient / S.O Not Indicated Pertinent Medications maalox, Glucagon, Humalog, MOM , Theragran Pertinent Labs (02/05) K 3.1 Nutritional Hx/Data Height 1.63 m Height (Calculated Centimeters) 162.6 Current Weight (lbs) 84.368 kg Weight (Calculated Kilograms) 84.4 Weight (Calculated Grams) 51783.2 [place] Body Weight 120 % [place] Body Weight 155 Body Mass Index (BMI) 31.9 Recent Weight Change No Weight Status Obese GI Symptoms GI Symptoms None Last BM not noted Difficult in: None Food Allergies No Cultural/Ethnic/Oriental [employer] Belief not indicated Usual diet at home unknown Skin Integrity/Comment: Dryness, Giorgi 21 Current %PO Negligible < 25% Estimated Nutritional Goals BEE in Kcals: Adj wt of IBW Calories/Kcals/Kg 62kg adj BW 25-30 kcal/kg Kcals Calculated ~0532-8945 kcal/day Protein: Adj wt of IBW Protein g/kgm/kg Protein Calculated ~60gm/day Fluid: ml ~7802-1607 kcal/day Nutritional Problem 1. Problem Problem Inadequate oral intake related to Etiology poor appetite aeb Signs/Symptoms: PO intake <25% of meals Intervention/Recommendation Comments 1. Continue regular diet as tolerated by patient. 2. Start Ensure Enlive TID for added calories and protein. Expected Outcomes/Goals Expected Outcomes/Goals Oral intake >75% of meals, weight stable or trend toward IBW, nutrition related labs WNL F/U MR 02/13-
--- NOTE | 2020-02-15 20:40 | Progress Notes ---
DATE: 02/15/2020 Case was discussed with staff of the patient, reviewed records. The patient continues to be paranoid, continues to have poor insight, continues to be unable to make safe plan for self-care; however, she started taking her medication. When I talked to the patient, she was sarcastic. She was internally preoccupied, paranoid attitude. She believes that we are trying to poison her with all these medication and so far no side effects to the medication, no sedation, no nausea, no extrapyramidal symptoms. MENTAL STATUS EXAMINATION: The patient is appropriately dressed, not well groomed. Her affect is constricted. Thoughts are concrete. She is paranoid, believing we are trying to poison her. Unable to make safe plan for self-care. No side effects to medications, no sedation, no nausea, no extrapyramidal symptoms. ASSESSMENT: Continues to be psychotic, continues need for hospitalization and adjust on home medication. We will continue the patient in group therapy, milieu therapy, adjust medication as needed. JOB# [id number]
[2020-02-16] MEDS: INSULIN LISPRO SLIDING SCALE 100 UNITS/ML UNIT SUBQ SCH (06:45)
[2020-02-16] MEDS: Multivitamin Tab PO SCH (08:16)
[2020-02-16] MEDS ORDERED: Haloperidol Lactate 5 mg/mL 1mL Vial IM PRN (10:43)
--- NOTE | 2020-02-16 14:32 | Internal Medicine Prog Note ---
Internal Medicine Subjective - Subjective Service Date: 02/16/20 Patient seen and examined:: without staff Patient is:: awake, interactive, in bed Per staff patient has:: no adverse event, no episodes of fall (no fevers, no cough, no sob) Internal Medicine Objective - Results Result Diagrams: 02/06/20 11:17 02/14/20 15:21 Recent Labs: Laboratory Last Values WBC 11.3 K/uL (4.8-10.8) H 02/06/20 11:17 RBC 4.95 MIL/uL (4.2-6.2) 02/06/20 11:17 Hgb 15.8 g/dL (12.0-16.0) 02/06/20 11:17 Hct 46.3 % (36-48) 02/06/20 11:17 MCV 94 fL (79.0-98.0) 02/06/20 11:17 MCH 32 pg (27-31) H 02/06/20 11:17 MCHC 34 % (32-36) 02/06/20 11:17 RDW 13.3 % (9.0-15.0) 02/06/20 11:17 Plt Count 228 K/uL (130-430) 02/06/20 11:17 MPV 10.7 fl (7.4-10.4) H 02/06/20 11:17 Neut % (Auto) 75.8 % (40-70) H 02/06/20 11:17 Lymph % (Auto) 15.2 % (20.5-51.5) L 02/06/20 11:17 [place] % (Auto) 7.3 % (1.7-9.3) 02/06/20 11:17 Eos % (Auto) 1.2 % (0-4) 02/06/20 11:17 Baso % (Auto) 0.5 % (0.0-2.0) 02/06/20 11:17 Neut # (Auto) 8.5 K/uL (1.8-7.7) H 02/06/20 11:17 Lymph # (Auto) 1.7 K/uL (1.0-5.5) 02/06/20 11:17 [place] # (Auto) 0.8 K/uL (0.0-1.0) 02/06/20 11:17 Eos # (Auto) 0.1 K/uL (0.0-0.4) 02/06/20 11:17 Baso # (Auto) 0.1 K/uL (0.0-0.2) 02/06/20 11:17 Sodium 138 mmol/L (136-145) 02/14/20 15:21 Potassium 3.6 mmol/L (3.5-5.1) 02/14/20 15:21 Chloride 103 mmol/L (98-107) 02/14/20 15:21 Carbon Dioxide 28 mmol/L (23-29) 02/14/20 15:21 Anion Gap 11 (5-15) 02/14/20 15:21 BUN 28 mg/dL (8-21) H 02/14/20 15:21 Creatinine 1.25 mg/dL (0.70-1.30) 02/14/20 15:21 Glucose 118 mg/dL (70-99) H 02/14/20 15:21 POC Glucose 98 MG/DL (70 - 105) 02/16/20 06:27 Calcium 9.9 mg/dL (8.4-10.2) 02/14/20 15:21 Total Bilirubin 0.9 mg/dL (0.0-1.0) 02/06/20 11:17 AST 33 U/L (10-37) 02/06/20 11:17 ALT 25 U/L (12-78) 02/06/20 11:17 Alkaline Phosphatase 89 U/L (46-116) 02/06/20 11:17 Total Protein 7.6 g/dL (6.4-8.3) 02/06/20 11:17 Albumin 3.8 g/dL (3.4-5.0) 02/06/20 11:17 Triglycerides 100 mg/dL (<150) 02/04/20 12:16 Cholesterol 152 mg/dL (<200) 02/04/20 12:16 LDL Cholesterol Direct 90 mg/dL (75-193) 02/04/20 12:16 HDL Cholesterol 41 mg/dL (23-92) 02/04/20 12:16 Urine Color YELLOW (YELLOW) 02/06/20 11:00 Urine Clarity HAZY (CLEAR) H 02/06/20 11:00 Urine pH 6.0 (5.0-8.0) 02/06/20 11:00 Ur Specific [place] >=1.030 (1.005-1.030) H 02/06/20 11:00 Urine Protein 1+ (NEGATIVE) H 02/06/20 11:00 Urine Ketones 3+ (NEGATIVE) H 02/06/20 11:00 Urine Blood TRACE (NEGATIVE) H 02/06/20 11:00 Urine Nitrate NEGATIVE (NEGATIVE) 02/06/20 11:00 Urine Bilirubin 1+ (NEGATIVE) H 02/06/20 11:00 Urine Urobilinogen 0.2 (0.2-1.0) 02/06/20 11:00 Ur Leukocyte Esterase NEGATIVE (NEGATIVE) 02/06/20 11:00 Urine Glucose NEGATIVE (NEGATIVE) 02/06/20 11:00 Coronavirus (PCR) Negative (Negative) 02/05/20 15:45 - Physical Exam Vitals and I&O: Vital Signs Temp 97.4 F 02/16/20 06:19 Pulse 91 02/16/20 06:19 Resp 17 02/16/20 08:00 BP 98/66 02/16/20 06:19 Pulse Ox 96 02/16/20 06:19 Intake & Output 02/15/20 02/16/20 02/16/20 18:59 06:59 18:59 Intake Total 900 240 Balance 900 240 Intake: Oral 900 240 Other: # Voids 3 2 # Bowel Movements 0 0 Active Medications: Current Medications Acetaminophen (Tylenol) 650 mg PO Q4H PRN PRN Reason: Pain (Mild 1-3) Stop: 04/04/20 00:26 Al Hydrox/Mg Hydrox/Simethicone (Maalox) 30 ml PO Q4HR PRN PRN Reason: GI DISTRESS Stop: 04/04/20 00:26 Benztropine Mesylate (Cogentin) 0.5 mg PO BID ASIF Stop: 04/13/20 16:59 Last Admin: 02/16/20 08:16 Dose: 0.5 mg Benztropine Mesylate (Cogentin) 0.5 mg IM BID PRN PRN Reason: EPS (TO GIVE WITH HALDOL IM) Stop: 04/13/20 14:25 Dextrose (Glutose 40%) 18.75 gm PO PRN PRN PRN Reason: BS Below 70 if tolerate po Stop: 04/04/20 01:51 Glucagon (Glucagen) 1 mg IM PRN PRN PRN Reason: BS Below 70 if not tolerate po Stop: 04/04/20 01:51 Haloperidol Lactate (Haldol) 4 mg PO BID [facility]; Protocol Stop: 04/16/20 16:59 Haloperidol Lactate (Haldol) 4 mg IM BID PRN PRN Reason: Agitation if pt refused po Stop: 04/13/20 14:18 Insulin Human Lispro (Humalog Insulin Sliding Scale) 0 units SUBQ QDAC [facility]; Protocol Stop: 04/17/20 07:29 Lorazepam (Ativan) 0.5 mg PO Q4HR PRN; Protocol PRN Reason: Agitation Stop: 03/05/20 00:26 Magnesium Hydroxide (Milk Of Magnesia) 30 ml PO HS PRN PRN Reason: Constipation Multivitamins/Vitamin C (Theragran) 1 tab PO DAILY [facility] Stop: 04/04/20 08:59 Last Admin: 02/16/20 08:16 Dose: 1 tab Quetiapine Fumarate 25 mg/ (Quetiapine Fumarate 50 mg) 75 mg PO HS [facility] Stop: 04/14/20 20:59 Last Admin: 02/15/20 21:19 Dose: 75 mg Zolpidem Tartrate (Ambien) 5 mg PO HS PRN PRN Reason: Insomnia Stop: 04/04/20 00:26 Last Admin: 02/15/20 21:20 Dose: 5 mg General: weak HEENT: NC/AT, PERRLA Neck: Supple Lungs: CTAB Cardiovascular: RRR, Normal S1, Normal S2 Abdomen: soft, +GT - discharge Extremities: clear Neurological: no change Internal Medicine Assmt/Plan - Assessment Assessment: 1. DM 2. HTN 3. Hypokalemia - Plan Plan: continue supportive care check bmp for hypokalemia d/w r.n. reviewed complete medical records Nutritional Asmnt/Malnutr-PDOC - Dietary Evaluation Malnutrition Findings (Please click <Entered> for more info): Nutritional Asmnt/Malnutrition Start: 02/11/20 10: 33 Text: Status: Complete Freq: Protocol: Document 02/11/20 10:33 KATT (Rec: 02/11/20 10:44 KATT ROD- [id number]) Nutritional Asmnt/Malnutrition Patient General Information Nutritional Screening Low Risk Diagnosis Psychosis Pertinent Medical Hx/Surgical Hx DM, hiatal hernia Subjective Information Patient was transferred from [facility]. Current diet order providing ~ 2100 kcal, 74 gm protein, with current diet intake of 0-25% of meals, average intake ~525 kcal, 18gm protein. Current Diet Order/ Nutrition Support Regular Patient / S.O Not Indicated Pertinent Medications maalox, Glucagon, Humalog, MOM , Theragran Pertinent Labs (02/05) K 3.1 Nutritional Hx/Data Height 1.63 m Height (Calculated Centimeters) 162.6 Current Weight (lbs) 84.368 kg Weight (Calculated Kilograms) 84.4 Weight (Calculated Grams) 11634.2 [place] Body Weight 120 % [place] Body Weight 155 Body Mass Index (BMI) 31.9 Recent Weight Change No Weight Status Obese GI Symptoms GI Symptoms None Last BM not noted Difficult in: None Food Allergies No Cultural/Ethnic/Pent[employer]al Belief not indicated Usual diet at home unknown Skin Integrity/Comment: Dryness, Giorgi 21 Current %PO Negligible < 25% Estimated Nutritional Goals BEE in Kcals: Adj wt of IBW Calories/Kcals/Kg 62kg adj BW 25-30 kcal/kg Kcals Calculated ~4905-3459 kcal/day Protein: Adj wt of IBW Protein g/kgm/kg Protein Calculated ~60gm/day Fluid: ml ~8272-5787 kcal/day Nutritional Problem 1. Problem Problem Inadequate oral intake related to Etiology poor appetite aeb Signs/Symptoms: PO intake <25% of meals Intervention/Recommendation Comments 1. Continue regular diet as tolerated by patient. 2. Start Ensure Enlive TID for added calories and protein. Expected Outcomes/Goals Expected Outcomes/Goals Oral intake >75% of meals, weight stable or trend toward IBW, nutrition related labs WNL F/U MR 02/13-
[2020-02-16] MEDS: Haloperidol Lactate Oral sol. 2 mg/mL Udc PO SCH (16:21)
--- NOTE | 2020-02-17 04:46 | Progress Notes ---
DATE: 02/16/2020 FOLLOWUP PROGRESS NOTE Case was discussed with staff of the patient, reviewed records. The patient has been taking medications and sometimes she refuses them. She is internally preoccupied. Continues to be psychotic, continues to be unable to make safe plan for self-care. Continues to have poor insight. I will be increasing her dose of Haldol to 4 mg twice a day to improve her psychotic behavior as she continues to be paranoid and delusional. No side effects with the medication, no sedation, no nausea and no extrapyramidal symptoms. We will continue to work with the patient in group therapy, milieu therapy, adjust the medication as needed. JOB# [id number]
[2020-02-17] MEDS: INSULIN LISPRO SLIDING SCALE 100 UNITS/ML UNIT SUBQ SCH (06:39)
[2020-02-17] MEDS: Multivitamin Tab PO SCH (08:21)
[2020-02-17] MEDS: Haloperidol Lactate Oral sol. 2 mg/mL Udc PO SCH ×2 (08:21→16:08)
--- NOTE | 2020-02-17 13:43 | Progress Notes ---
DATE: 02/17/2020 Case was discussed with staff of the patient, reviewed records. The patient continues to be delusional, internally preoccupied. Continues to stay to herself. Continues to be unable to make safe plan for her self-care, paranoid, delusional. She reports she is going to report this to the [employer] . No side effects with the medication, no sedation, no nausea, no extrapyramidal symptoms. I increased her Haldol yesterday to 4 mg twice a day. We will continue outpatient group therapy, milieu therapy, and adjust medications as needed. JOB# [id number] KENNY
--- NOTE | 2020-02-17 16:10 | Internal Medicine Prog Note ---
Internal Medicine Subjective - Subjective Service Date: 02/17/20 (Late entry) Patient is:: awake, interactive, in bed Per staff patient has:: no adverse event, no episodes of fall (no fevers, no cough, no sob) Internal Medicine Objective - Results Result Diagrams: 02/06/20 11:17 02/14/20 15:21 Recent Labs: Laboratory Last Values WBC 11.3 K/uL (4.8-10.8) H 02/06/20 11:17 RBC 4.95 MIL/uL (4.2-6.2) 02/06/20 11:17 Hgb 15.8 g/dL (12.0-16.0) 02/06/20 11:17 Hct 46.3 % (36-48) 02/06/20 11:17 MCV 94 fL (79.0-98.0) 02/06/20 11:17 MCH 32 pg (27-31) H 02/06/20 11:17 MCHC 34 % (32-36) 02/06/20 11:17 RDW 13.3 % (9.0-15.0) 02/06/20 11:17 Plt Count 228 K/uL (130-430) 02/06/20 11:17 MPV 10.7 fl (7.4-10.4) H 02/06/20 11:17 Neut % (Auto) 75.8 % (40-70) H 02/06/20 11:17 Lymph % (Auto) 15.2 % (20.5-51.5) L 02/06/20 11:17 [place] % (Auto) 7.3 % (1.7-9.3) 02/06/20 11:17 Eos % (Auto) 1.2 % (0-4) 02/06/20 11:17 Baso % (Auto) 0.5 % (0.0-2.0) 02/06/20 11:17 Neut # (Auto) 8.5 K/uL (1.8-7.7) H 02/06/20 11:17 Lymph # (Auto) 1.7 K/uL (1.0-5.5) 02/06/20 11:17 [place] # (Auto) 0.8 K/uL (0.0-1.0) 02/06/20 11:17 Eos # (Auto) 0.1 K/uL (0.0-0.4) 02/06/20 11:17 Baso # (Auto) 0.1 K/uL (0.0-0.2) 02/06/20 11:17 Sodium 138 mmol/L (136-145) 02/14/20 15:21 Potassium 3.6 mmol/L (3.5-5.1) 02/14/20 15:21 Chloride 103 mmol/L (98-107) 02/14/20 15:21 Carbon Dioxide 28 mmol/L (23-29) 02/14/20 15:21 Anion Gap 11 (5-15) 02/14/20 15:21 BUN 28 mg/dL (8-21) H 02/14/20 15:21 Creatinine 1.25 mg/dL (0.70-1.30) 02/14/20 15:21 Glucose 118 mg/dL (70-99) H 02/14/20 15:21 POC Glucose 102 MG/DL (70 - 105) 02/17/20 06:29 Calcium 9.9 mg/dL (8.4-10.2) 02/14/20 15:21 Total Bilirubin 0.9 mg/dL (0.0-1.0) 02/06/20 11:17 AST 33 U/L (10-37) 02/06/20 11:17 ALT 25 U/L (12-78) 02/06/20 11:17 Alkaline Phosphatase 89 U/L (46-116) 02/06/20 11:17 Total Protein 7.6 g/dL (6.4-8.3) 02/06/20 11:17 Albumin 3.8 g/dL (3.4-5.0) 02/06/20 11:17 Triglycerides 100 mg/dL (<150) 02/04/20 12:16 Cholesterol 152 mg/dL (<200) 02/04/20 12:16 LDL Cholesterol Direct 90 mg/dL (75-193) 02/04/20 12:16 HDL Cholesterol 41 mg/dL (23-92) 02/04/20 12:16 Urine Color YELLOW (YELLOW) 02/06/20 11:00 Urine Clarity HAZY (CLEAR) H 02/06/20 11:00 Urine pH 6.0 (5.0-8.0) 02/06/20 11:00 Ur Specific [place] >=1.030 (1.005-1.030) H 02/06/20 11:00 Urine Protein 1+ (NEGATIVE) H 02/06/20 11:00 Urine Ketones 3+ (NEGATIVE) H 02/06/20 11:00 Urine Blood TRACE (NEGATIVE) H 02/06/20 11:00 Urine Nitrate NEGATIVE (NEGATIVE) 02/06/20 11:00 Urine Bilirubin 1+ (NEGATIVE) H 02/06/20 11:00 Urine Urobilinogen 0.2 (0.2-1.0) 02/06/20 11:00 Ur Leukocyte Esterase NEGATIVE (NEGATIVE) 02/06/20 11:00 Urine Glucose NEGATIVE (NEGATIVE) 02/06/20 11:00 Coronavirus (PCR) Negative (Negative) 02/05/20 15:45 - Physical Exam Vitals and I&O: Vital Signs Temp 97.2 F 02/16/20 20:33 Pulse 90 02/16/20 20:33 Resp 17 02/17/20 08:00 BP 107/59 02/16/20 20:33 Pulse Ox 95 02/16/20 20:33 Intake & Output 02/16/20 02/17/20 02/17/20 18:59 06:59 18:59 Intake Total 960 240 Balance 960 240 Intake: Oral 960 240 Other: # Voids 3 2 # Bowel Movements 0 0 Active Medications: Current Medications Acetaminophen (Tylenol) 650 mg PO Q4H PRN PRN Reason: Pain (Mild 1-3) Stop: 04/04/20 00:26 Al Hydrox/Mg Hydrox/Simethicone (Maalox) 30 ml PO Q4HR PRN PRN Reason: GI DISTRESS Stop: 04/04/20 00:26 Benztropine Mesylate (Cogentin) 0.5 mg PO BID ASIF Stop: 04/13/20 16:59 Last Admin: 02/17/20 08:21 Dose: 0.5 mg Benztropine Mesylate (Cogentin) 0.5 mg IM BID PRN PRN Reason: EPS (TO GIVE WITH HALDOL IM) Stop: 04/13/20 14:25 Dextrose (Glutose 40%) 18.75 gm PO PRN PRN PRN Reason: BS Below 70 if tolerate po Stop: 04/04/20 01:51 Glucagon (Glucagen) 1 mg IM PRN PRN PRN Reason: BS Below 70 if not tolerate po Stop: 04/04/20 01:51 Haloperidol Lactate (Haldol) 4 mg PO BID [facility]; Protocol Stop: 04/16/20 16:59 Last Admin: 02/17/20 08:21 Dose: 4 mg Haloperidol Lactate (Haldol) 4 mg IM BID PRN PRN Reason: Agitation if pt refused po Stop: 04/13/20 14:18 Insulin Human Lispro (Humalog Insulin Sliding Scale) 0 units SUBQ QDAC [facility]; Protocol Stop: 04/17/20 07:29 Last Admin: 02/17/20 06:39 Dose: Not Given Lorazepam (Ativan) 0.5 mg PO Q4HR PRN; Protocol PRN Reason: Agitation Stop: 03/05/20 00:26 Magnesium Hydroxide (Milk Of Magnesia) 30 ml PO HS PRN PRN Reason: Constipation Multivitamins/Vitamin C (Theragran) 1 tab PO DAILY ASIF Stop: 04/04/20 08:59 Last Admin: 02/17/20 08:21 Dose: 1 tab Quetiapine Fumarate 25 mg/ (Quetiapine Fumarate 50 mg) 75 mg PO HS ASIF Stop: 04/14/20 20:59 Last Admin: 02/16/20 21:27 Dose: 75 mg Zolpidem Tartrate (Ambien) 5 mg PO HS PRN PRN Reason: Insomnia Stop: 04/04/20 00:26 Last Admin: 02/15/20 21:20 Dose: 5 mg General: weak HEENT: NC/AT, PERRLA Neck: Supple Lungs: CTAB Cardiovascular: RRR, Normal S1, Normal S2 Abdomen: soft, +GT - discharge Extremities: clear Neurological: no change Internal Medicine Assmt/Plan - Assessment Assessment: 1. DM 2. HTN - Plan Plan: await results d/w r.n. reviewed complete medical records Nutritional Asmnt/Malnutr-PDOC - Dietary Evaluation Malnutrition Findings (Please click <Entered> for more info): Nutritional Asmnt/Malnutrition Start: 02/11/20 10: 33 Text: Status: Complete Freq: Protocol: Document 02/11/20 10:33 KATT (Rec: 02/11/20 10:44 KATT ROD- [id number]) Nutritional Asmnt/Malnutrition Patient General Information Nutritional Screening Low Risk Diagnosis Psychosis Pertinent Medical Hx/Surgical Hx DM, hiatal hernia Subjective Information Patient was transferred from [facility]. Current diet order providing ~ 2100 kcal, 74 gm protein, with current diet intake of 0-25% of meals, average intake ~525 kcal, 18gm protein. Current Diet Order/ Nutrition Support Regular Patient / S.O Not Indicated Pertinent Medications maalox, Glucagon, Humalog, MOM , Theragran Pertinent Labs (02/05) K 3.1 Nutritional Hx/Data Height 1.63 m Height (Calculated Centimeters) 162.6 Current Weight (lbs) 84.368 kg Weight (Calculated Kilograms) 84.4 Weight (Calculated Grams) 21500.2 [place] Body Weight 120 % [place] Body Weight 155 Body Mass Index (BMI) 31.9 Recent Weight Change No Weight Status Obese GI Symptoms GI Symptoms None Last BM not noted Difficult in: None Food Allergies No Cultural/Ethnic/Oriental Orthodox Belief not indicated Usual diet at home unknown Skin Integrity/Comment: Dryness, Giorgi 21 Current %PO Negligible < 25% Estimated Nutritional Goals BEE in Kcals: Adj wt of IBW Calories/Kcals/Kg 62kg adj BW 25-30 kcal/kg Kcals Calculated ~6259-0684 kcal/day Protein: Adj wt of IBW Protein g/kgm/kg Protein Calculated ~60gm/day Fluid: ml ~1093-7875 kcal/day Nutritional Problem 1. Problem Problem Inadequate oral intake related to Etiology poor appetite aeb Signs/Symptoms: PO intake <25% of meals Intervention/Recommendation Comments 1. Continue regular diet as tolerated by patient. 2. Start Ensure Enlive TID for added calories and protein. Expected Outcomes/Goals Expected Outcomes/Goals Oral intake >75% of meals, weight stable or trend toward IBW, nutrition related labs WNL F/U MR 02/13-
[2020-02-18] MEDS: INSULIN LISPRO SLIDING SCALE 100 UNITS/ML UNIT SUBQ SCH (06:29)
[2020-02-18] MEDS: Haloperidol Lactate Oral sol. 2 mg/mL Udc PO SCH ×3 (10:10→17:16)
[2020-02-18] MEDS: Multivitamin Tab PO SCH ×2 (10:11→10:26)
[2020-02-18 11:11] LABS: POTASSIUM SERUM 3.9 mmol/L (3.5-5.1)
[2020-02-18 11:12] LABS: CALCIUM SERUM 9.7 mg/dL (8.4-10.2); CREATININE - SERUM 1.41 mg/dL (0.70-1.30)
--- NOTE | 2020-02-18 16:07 | Progress Notes ---
DATE: 02/18/2020 SUBJECTIVE: The patient was seen, chart reviewed, and discussed with staff. The patient continues to be actively psychotic, responding to internal stimuli, remains very paranoid. Continues to think FBI and government officials were after her. She has been compliant with her medications, denying any side effects. We will continue the patient on current medications and titrate as needed. [facility]# [id number]
[2020-02-19] MEDS: INSULIN LISPRO SLIDING SCALE 100 UNITS/ML UNIT SUBQ SCH (06:38)
[2020-02-19] MEDS: Multivitamin Tab PO SCH (09:37)
[2020-02-19] MEDS: Haloperidol Lactate Oral sol. 2 mg/mL Udc PO SCH ×2 (09:37→17:23)
--- NOTE | 2020-02-19 16:19 | Progress Notes ---
DATE: SUBJECTIVE: The patient was seen, chart reviewed, and discussed with staff. The patient continues to be disoriented, confused and paranoid, continues to feel that government agencies are spying on her. She has, however, been compliant with medications, denying any side effects. PLAN: The patient continues to be disoriented, confused and paranoid, so that she will require inpatient care facility and treatment. We will monitor on a daily basis for response to medications and titrate medications as needed. JOB# [id number]
[2020-02-20] MEDS: INSULIN LISPRO SLIDING SCALE 100 UNITS/ML UNIT SUBQ SCH (06:47)
[2020-02-20] MEDS: Multivitamin Tab PO SCH (08:26)
[2020-02-20] MEDS: Haloperidol Lactate Oral sol. 2 mg/mL Udc PO SCH ×2 (08:26→16:32)
--- NOTE | 2020-02-20 13:05 | Internal Medicine Prog Note ---
Internal Medicine Subjective - Subjective Service Date: 02/20/20 Patient seen and examined:: without staff Patient is:: awake, interactive, in bed Per staff patient has:: no adverse event, no episodes of fall (no fevers, no cough, no sob) Internal Medicine Objective - Results Result Diagrams: 02/06/20 11:17 02/18/20 05:39 Recent Labs: Laboratory Last Values WBC 11.3 K/uL (4.8-10.8) H 02/06/20 11:17 RBC 4.95 MIL/uL (4.2-6.2) 02/06/20 11:17 Hgb 15.8 g/dL (12.0-16.0) 02/06/20 11:17 Hct 46.3 % (36-48) 02/06/20 11:17 MCV 94 fL (79.0-98.0) 02/06/20 11:17 MCH 32 pg (27-31) H 02/06/20 11:17 MCHC 34 % (32-36) 02/06/20 11:17 RDW 13.3 % (9.0-15.0) 02/06/20 11:17 Plt Count 228 K/uL (130-430) 02/06/20 11:17 MPV 10.7 fl (7.4-10.4) H 02/06/20 11:17 Neut % (Auto) 75.8 % (40-70) H 02/06/20 11:17 Lymph % (Auto) 15.2 % (20.5-51.5) L 02/06/20 11:17 [place] % (Auto) 7.3 % (1.7-9.3) 02/06/20 11:17 Eos % (Auto) 1.2 % (0-4) 02/06/20 11:17 Baso % (Auto) 0.5 % (0.0-2.0) 02/06/20 11:17 Neut # (Auto) 8.5 K/uL (1.8-7.7) H 02/06/20 11:17 Lymph # (Auto) 1.7 K/uL (1.0-5.5) 02/06/20 11:17 [place] # (Auto) 0.8 K/uL (0.0-1.0) 02/06/20 11:17 Eos # (Auto) 0.1 K/uL (0.0-0.4) 02/06/20 11:17 Baso # (Auto) 0.1 K/uL (0.0-0.2) 02/06/20 11:17 Sodium 141 mmol/L (136-145) 02/18/20 05:39 Potassium 3.9 mmol/L (3.5-5.1) 02/18/20 05:39 Chloride 104 mmol/L (98-107) 02/18/20 05:39 Carbon Dioxide 29 mmol/L (23-29) 02/18/20 05:39 Anion Gap 12 (5-15) 02/18/20 05:39 BUN 33 mg/dL (8-21) H 02/18/20 05:39 Creatinine 1.41 mg/dL (0.70-1.30) H 02/18/20 05:39 Glucose 98 mg/dL (70-99) 02/18/20 05:39 POC Glucose 111 MG/DL (70 - 105) H 02/20/20 05:56 Calcium 9.7 mg/dL (8.4-10.2) 02/18/20 05:39 Total Bilirubin 0.9 mg/dL (0.0-1.0) 02/06/20 11:17 AST 33 U/L (10-37) 02/06/20 11:17 ALT 25 U/L (12-78) 02/06/20 11:17 Alkaline Phosphatase 89 U/L (46-116) 02/06/20 11:17 Total Protein 7.6 g/dL (6.4-8.3) 02/06/20 11:17 Albumin 3.8 g/dL (3.4-5.0) 02/06/20 11:17 Triglycerides 100 mg/dL (<150) 02/04/20 12:16 Cholesterol 152 mg/dL (<200) 02/04/20 12:16 LDL Cholesterol Direct 90 mg/dL (75-193) 02/04/20 12:16 HDL Cholesterol 41 mg/dL (23-92) 02/04/20 12:16 Urine Color YELLOW (YELLOW) 02/06/20 11:00 Urine Clarity HAZY (CLEAR) H 02/06/20 11:00 Urine pH 6.0 (5.0-8.0) 02/06/20 11:00 Ur Specific [place] >=1.030 (1.005-1.030) H 02/06/20 11:00 Urine Protein 1+ (NEGATIVE) H 02/06/20 11:00 Urine Ketones 3+ (NEGATIVE) H 02/06/20 11:00 Urine Blood TRACE (NEGATIVE) H 02/06/20 11:00 Urine Nitrate NEGATIVE (NEGATIVE) 02/06/20 11:00 Urine Bilirubin 1+ (NEGATIVE) H 02/06/20 11:00 Urine Urobilinogen 0.2 (0.2-1.0) 02/06/20 11:00 Ur Leukocyte Esterase NEGATIVE (NEGATIVE) 02/06/20 11:00 Urine Glucose NEGATIVE (NEGATIVE) 02/06/20 11:00 Coronavirus (PCR) Negative (Negative) 02/05/20 15:45 - Physical Exam Vitals and I&O: Vital Signs Temp 98.3 F 02/20/20 06:24 Pulse 88 02/20/20 06:24 Resp 18 02/20/20 07:31 BP 102/80 02/20/20 06:24 Pulse Ox 97 02/20/20 06:24 Intake & Output 02/19/20 02/20/20 02/20/20 18:59 06:59 18:59 Intake Total 800 120 Balance 800 120 Intake: Oral 800 120 Other: # Voids 3 Stool Characteristics Soft Active Medications: Current Medications Acetaminophen (Tylenol) 650 mg PO Q4H PRN PRN Reason: Pain (Mild 1-3) Stop: 04/04/20 00:26 Al Hydrox/Mg Hydrox/Simethicone (Maalox) 30 ml PO Q4HR PRN PRN Reason: GI DISTRESS Stop: 04/04/20 00:26 Benztropine Mesylate (Cogentin) 0.5 mg PO BID ASIF Stop: 04/13/20 16:59 Last Admin: 02/20/20 08:26 Dose: 0.5 mg Benztropine Mesylate (Cogentin) 0.5 mg IM BID PRN PRN Reason: EPS (TO GIVE WITH HALDOL IM) Stop: 04/13/20 14:25 Dextrose (Glutose 40%) 18.75 gm PO PRN PRN PRN Reason: BS Below 70 if tolerate po Stop: 04/04/20 01:51 Glucagon (Glucagen) 1 mg IM PRN PRN PRN Reason: BS Below 70 if not tolerate po Stop: 04/04/20 01:51 Haloperidol Lactate (Haldol) 4 mg PO BID [facility]; Protocol Stop: 04/16/20 16:59 Last Admin: 02/20/20 08:26 Dose: 4 mg Haloperidol Lactate (Haldol) 4 mg IM BID PRN PRN Reason: Agitation if pt refused po Stop: 04/13/20 14:18 Insulin Human Lispro (Humalog Insulin Sliding Scale) 0 units SUBQ QDAC [facility]; Protocol Stop: 04/17/20 07:29 Last Admin: 02/20/20 06:47 Dose: Not Given Lorazepam (Ativan) 0.5 mg PO Q4HR PRN; Protocol PRN Reason: Agitation Stop: 03/05/20 00:26 Last Admin: 02/20/20 08:26 Dose: 0.5 mg Magnesium Hydroxide (Milk Of Magnesia) 30 ml PO HS PRN PRN Reason: Constipation Multivitamins/Vitamin C (Theragran) 1 tab PO DAILY ASIF Stop: 04/04/20 08:59 Last Admin: 02/20/20 08:26 Dose: 1 tab Quetiapine Fumarate (Seroquel) 100 mg PO HS ASIF Stop: 04/20/20 20:59 Zolpidem Tartrate (Ambien) 5 mg PO HS PRN PRN Reason: Insomnia Stop: 04/04/20 00:26 Last Admin: 02/15/20 21:20 Dose: 5 mg General: weak HEENT: NC/AT, PERRLA Neck: Supple Lungs: CTAB Cardiovascular: RRR, Normal S1, Normal S2 Abdomen: soft, +GT - discharge Extremities: clear Neurological: no change Internal Medicine Assmt/Plan - Assessment Assessment: 1. DM 2. HTN - Plan Plan: continue sliding scale insulin d/w r.n. reviewed complete medical records Nutritional Asmnt/Malnutr-PDOC - Dietary Evaluation Malnutrition Findings (Please click <Entered> for more info): Nutritional Asmnt/Malnutrition Start: 02/11/20 10: 33 Text: Status: Complete Freq: Protocol: Document 02/11/20 10:33 MMTREVOR (Rec: 02/11/20 10:44 MMTREVOR ROD- [id number]) Nutritional Asmnt/Malnutrition Patient General Information Nutritional Screening Low Risk Diagnosis Psychosis Pertinent Medical Hx/Surgical Hx DM, hiatal hernia Subjective Information Patient was transferred from [facility]. Current diet order providing ~ 2100 kcal, 74 gm protein, with current diet intake of 0-25% of meals, average intake ~525 kcal, 18gm protein. Current Diet Order/ Nutrition Support Regular Patient / S.O Not Indicated Pertinent Medications maalox, Glucagon, Humalog, MOM , Theragran Pertinent Labs (02/05) K 3.1 Nutritional Hx/Data Height 1.63 m Height (Calculated Centimeters) 162.6 Current Weight (lbs) 84.368 kg Weight (Calculated Kilograms) 84.4 Weight (Calculated Grams) 23596.2 Man Body Weight 120 % Man Body Weight 155 Body Mass Index (BMI) 31.9 Recent Weight Change No Weight Status Obese GI Symptoms GI Symptoms None Last BM not noted Difficult in: None Food Allergies No Cultural/Ethnic/Confucianism Belief not indicated Usual diet at home unknown Skin Integrity/Comment: Dryness, Giorgi 21 Current %PO Negligible < 25% Estimated Nutritional Goals BEE in Kcals: Adj wt of IBW Calories/Kcals/Kg 62kg adj BW 25-30 kcal/kg Kcals Calculated ~9027-8296 kcal/day Protein: Adj wt of IBW Protein g/kgm/kg Protein Calculated ~60gm/day Fluid: ml ~5135-6802 kcal/day Nutritional Problem 1. Problem Problem Inadequate oral intake related to Etiology poor appetite aeb Signs/Symptoms: PO intake <25% of meals Intervention/Recommendation Comments 1. Continue regular diet as tolerated by patient. 2. Start Ensure Enlive TID for added calories and protein. Expected Outcomes/Goals Expected Outcomes/Goals Oral intake >75% of meals, weight stable or trend toward IBW, nutrition related labs WNL F/U MR 02/13-
--- NOTE | 2020-02-20 19:38 | Progress Notes ---
DATE: 02/20/2020 Case was discussed with staff of the patient, reviewed records. She is agreeable to take oral medications. The patient is calmer. She is less delusional; however, . She is still somewhat paranoid, continues to be unable to make safe plan for self-care. Continues to have poor insight in general, but in general, she is showing progress. She is less faulkner, less irritable, less angry. No side effects with the medication, no sedation, no nausea, no extrapyramidal symptoms. I will be increasing her Seroquel to 100 mg at bedtime and she also on Haldol and will be getting injections if she refuses oral medication. We will continue the patient in group therapy, milieu therapy, and adjust the medications as needed. JOB# [id number] KENNY
[2020-02-21] MEDS: INSULIN LISPRO SLIDING SCALE 100 UNITS/ML UNIT SUBQ SCH (06:37)
[2020-02-21] MEDS: Multivitamin Tab PO SCH (08:21)
[2020-02-21] MEDS: Haloperidol Lactate Oral sol. 2 mg/mL Udc PO SCH ×2 (08:22→17:22)
--- NOTE | 2020-02-21 11:28 | Internal Medicine Prog Note ---
Internal Medicine Subjective - Subjective Service Date: 02/21/20 Patient is:: awake, interactive, in bed Per staff patient has:: no adverse event, no episodes of fall (no fevers, no cough, no sob) Internal Medicine Objective - Results Result Diagrams: 02/06/20 11:17 02/18/20 05:39 Recent Labs: Laboratory Last Values WBC 11.3 K/uL (4.8-10.8) H 02/06/20 11:17 RBC 4.95 MIL/uL (4.2-6.2) 02/06/20 11:17 Hgb 15.8 g/dL (12.0-16.0) 02/06/20 11:17 Hct 46.3 % (36-48) 02/06/20 11:17 MCV 94 fL (79.0-98.0) 02/06/20 11:17 MCH 32 pg (27-31) H 02/06/20 11:17 MCHC 34 % (32-36) 02/06/20 11:17 RDW 13.3 % (9.0-15.0) 02/06/20 11:17 Plt Count 228 K/uL (130-430) 02/06/20 11:17 MPV 10.7 fl (7.4-10.4) H 02/06/20 11:17 Neut % (Auto) 75.8 % (40-70) H 02/06/20 11:17 Lymph % (Auto) 15.2 % (20.5-51.5) L 02/06/20 11:17 [place] % (Auto) 7.3 % (1.7-9.3) 02/06/20 11:17 Eos % (Auto) 1.2 % (0-4) 02/06/20 11:17 Baso % (Auto) 0.5 % (0.0-2.0) 02/06/20 11:17 Neut # (Auto) 8.5 K/uL (1.8-7.7) H 02/06/20 11:17 Lymph # (Auto) 1.7 K/uL (1.0-5.5) 02/06/20 11:17 [place] # (Auto) 0.8 K/uL (0.0-1.0) 02/06/20 11:17 Eos # (Auto) 0.1 K/uL (0.0-0.4) 02/06/20 11:17 Baso # (Auto) 0.1 K/uL (0.0-0.2) 02/06/20 11:17 Sodium 141 mmol/L (136-145) 02/18/20 05:39 Potassium 3.9 mmol/L (3.5-5.1) 02/18/20 05:39 Chloride 104 mmol/L (98-107) 02/18/20 05:39 Carbon Dioxide 29 mmol/L (23-29) 02/18/20 05:39 Anion Gap 12 (5-15) 02/18/20 05:39 BUN 33 mg/dL (8-21) H 02/18/20 05:39 Creatinine 1.41 mg/dL (0.70-1.30) H 02/18/20 05:39 Glucose 98 mg/dL (70-99) 02/18/20 05:39 POC Glucose 94 MG/DL (70 - 105) 02/21/20 06:20 Calcium 9.7 mg/dL (8.4-10.2) 02/18/20 05:39 Total Bilirubin 0.9 mg/dL (0.0-1.0) 02/06/20 11:17 AST 33 U/L (10-37) 02/06/20 11:17 ALT 25 U/L (12-78) 02/06/20 11:17 Alkaline Phosphatase 89 U/L (46-116) 02/06/20 11:17 Total Protein 7.6 g/dL (6.4-8.3) 02/06/20 11:17 Albumin 3.8 g/dL (3.4-5.0) 02/06/20 11:17 Triglycerides 100 mg/dL (<150) 02/04/20 12:16 Cholesterol 152 mg/dL (<200) 02/04/20 12:16 LDL Cholesterol Direct 90 mg/dL (75-193) 02/04/20 12:16 HDL Cholesterol 41 mg/dL (23-92) 02/04/20 12:16 Urine Color YELLOW (YELLOW) 02/06/20 11:00 Urine Clarity HAZY (CLEAR) H 02/06/20 11:00 Urine pH 6.0 (5.0-8.0) 02/06/20 11:00 Ur Specific [place] >=1.030 (1.005-1.030) H 02/06/20 11:00 Urine Protein 1+ (NEGATIVE) H 02/06/20 11:00 Urine Ketones 3+ (NEGATIVE) H 02/06/20 11:00 Urine Blood TRACE (NEGATIVE) H 02/06/20 11:00 Urine Nitrate NEGATIVE (NEGATIVE) 02/06/20 11:00 Urine Bilirubin 1+ (NEGATIVE) H 02/06/20 11:00 Urine Urobilinogen 0.2 (0.2-1.0) 02/06/20 11:00 Ur Leukocyte Esterase NEGATIVE (NEGATIVE) 02/06/20 11:00 Urine Glucose NEGATIVE (NEGATIVE) 02/06/20 11:00 Coronavirus (PCR) Negative (Negative) 02/05/20 15:45 - Physical Exam Vitals and I&O: Vital Signs Temp 97.6 F 02/21/20 06:19 Pulse 85 02/21/20 06:19 Resp 20 02/21/20 07:36 BP 105/66 02/21/20 06:19 Pulse Ox 95 02/21/20 06:19 Intake & Output 02/20/20 02/21/20 02/21/20 18:59 06:59 18:59 Intake Total 1200 360 Output Total 1 Balance 1200 359 Intake: Oral 840 360 Other 360 Output: Urine/Stool Mix 1 Other: # Voids 3 1 # Bowel Movements 0 0 Active Medications: Current Medications Acetaminophen (Tylenol) 650 mg PO Q4H PRN PRN Reason: Pain (Mild 1-3) Stop: 04/04/20 00:26 Al Hydrox/Mg Hydrox/Simethicone (Maalox) 30 ml PO Q4HR PRN PRN Reason: GI DISTRESS Stop: 04/04/20 00:26 Benztropine Mesylate (Cogentin) 0.5 mg PO BID ASIF Stop: 04/13/20 16:59 Last Admin: 02/21/20 08:21 Dose: 0.5 mg Benztropine Mesylate (Cogentin) 0.5 mg IM BID PRN PRN Reason: EPS (TO GIVE WITH HALDOL IM) Stop: 04/13/20 14:25 Dextrose (Glutose 40%) 18.75 gm PO PRN PRN PRN Reason: BS Below 70 if tolerate po Stop: 04/04/20 01:51 Glucagon (Glucagen) 1 mg IM PRN PRN PRN Reason: BS Below 70 if not tolerate po Stop: 04/04/20 01:51 Haloperidol Lactate (Haldol) 4 mg PO BID [facility]; Protocol Stop: 04/16/20 16:59 Last Admin: 02/21/20 08:22 Dose: Not Given Haloperidol Lactate (Haldol) 4 mg IM BID PRN PRN Reason: Agitation if pt refused po Stop: 04/13/20 14:18 Insulin Human Lispro (Humalog Insulin Sliding Scale) 0 units SUBQ QDAC [facility]; Protocol Stop: 04/17/20 07:29 Last Admin: 02/21/20 06:37 Dose: Not Given Lorazepam (Ativan) 0.5 mg PO Q4HR PRN; Protocol PRN Reason: Agitation Stop: 03/05/20 00:26 Last Admin: 02/21/20 08:21 Dose: 0.5 mg Magnesium Hydroxide (Milk Of Magnesia) 30 ml PO HS PRN PRN Reason: Constipation Multivitamins/Vitamin C (Theragran) 1 tab PO DAILY ASIF Stop: 04/04/20 08:59 Last Admin: 02/21/20 08:21 Dose: 1 tab Quetiapine Fumarate (Seroquel) 100 mg PO HS ASIF Stop: 04/20/20 20:59 Last Admin: 02/20/20 21:40 Dose: 100 mg Zolpidem Tartrate (Ambien) 5 mg PO HS PRN PRN Reason: Insomnia Stop: 04/04/20 00:26 Last Admin: 02/15/20 21:20 Dose: 5 mg General: weak HEENT: NC/AT, PERRLA Neck: Supple Lungs: CTAB Cardiovascular: RRR, Normal S1, Normal S2 Abdomen: soft, +GT - discharge Extremities: clear Neurological: no change Internal Medicine Assmt/Plan - Assessment Assessment: 1. DM 2. HTN - Plan Plan: continue sliding scale insulin d/w r.n. reviewed complete medical records Nutritional Asmnt/Malnutr-PDOC - Dietary Evaluation Malnutrition Findings (Please click <Entered> for more info): Nutritional Asmnt/Malnutrition Start: 02/11/20 10: 33 Text: Status: Complete Freq: Protocol: Document 02/11/20 10:33 KATT (Rec: 02/11/20 10:44 KATT MARCEL- [id number]) Nutritional Asmnt/Malnutrition Patient General Information Nutritional Screening Low Risk Diagnosis Psychosis Pertinent Medical Hx/Surgical Hx DM, hiatal hernia Subjective Information Patient was transferred from [facility]. Current diet order providing ~ 2100 kcal, 74 gm protein, with current diet intake of 0-25% of meals, average intake ~525 kcal, 18gm protein. Current Diet Order/ Nutrition Support Regular Patient / S.O Not Indicated Pertinent Medications maalox, Glucagon, Humalog, MOM , Theragran Pertinent Labs (02/05) K 3.1 Nutritional Hx/Data Height 1.63 m Height (Calculated Centimeters) 162.6 Current Weight (lbs) 84.368 kg Weight (Calculated Kilograms) 84.4 Weight (Calculated Grams) 91399.2 [place] Body Weight 120 % [place] Body Weight 155 Body Mass Index (BMI) 31.9 Recent Weight Change No Weight Status Obese GI Symptoms GI Symptoms None Last BM not noted Difficult in: None Food Allergies No Cultural/Ethnic/Protestant Belief not indicated Usual diet at home unknown Skin Integrity/Comment: Dryness, Giorgi 21 Current %PO Negligible < 25% Estimated Nutritional Goals BEE in Kcals: Adj wt of IBW Calories/Kcals/Kg 62kg adj BW 25-30 kcal/kg Kcals Calculated ~5136-6869 kcal/day Protein: Adj wt of IBW Protein g/kgm/kg Protein Calculated ~60gm/day Fluid: ml ~6087-2125 kcal/day Nutritional Problem 1. Problem Problem Inadequate oral intake related to Etiology poor appetite aeb Signs/Symptoms: PO intake <25% of meals Intervention/Recommendation Comments 1. Continue regular diet as tolerated by patient. 2. Start Ensure Enlive TID for added calories and protein. Expected Outcomes/Goals Expected Outcomes/Goals Oral intake >75% of meals, weight stable or trend toward IBW, nutrition related labs WNL F/U MR 02/13-
--- NOTE | 2020-02-21 19:44 | Progress Notes ---
DATE: 02/21/2020 Case was discussed with staff of the patient, reviewed records. The patient continues to be delusional. Though she is taking medications she believes that we have still have a lot of pedophiles, The patient continues to look disheveled, disorganized, internally preoccupied. Continues to have poor insight. No side effects with the medication, no sedation, no nausea, no extrapyramidal symptoms. I will be increasing her Seroquel to 75 mg twice a day. The patient continues to be psychotic, delusional, believes She asked me to look into my photographs and i will know ? very delusional and no side effects with the medication, no sedation, no nausea, no extrapyramidal symptoms. ASSESSMENT: The patient is still very psychotic, delusional and paranoid. We will continue outpatient group therapy, milieu therapy, and adjust medications as needed. JOB# [id number] KENNY
[2020-02-22] MEDS: INSULIN LISPRO SLIDING SCALE 100 UNITS/ML UNIT SUBQ SCH (06:35)
[2020-02-22] MEDS ORDERED: Haloperidol Lactate 5 mg/mL 1mL Vial IM PRN (08:07)
[2020-02-22] MEDS: Haldol Oral Sol.(concentrate) 10 mg/5 mL Udc PO SCH ×2 (09:36→16:54)
[2020-02-22] MEDS: Multivitamin Tab PO SCH (09:37)
--- NOTE | 2020-02-22 09:54 | Progress Notes ---
DATE: 02/22/2020 Case was discussed with staff of the patient and reviewed records. The patient today is still psychotic, asked me to get out of there. She continues to be delusional, continues to have poor insight, continues to isolate herself, and very irritable. Her affect is angry. Her mood is depressed. Thoughts are concrete. She believes that we are all pedophiles here. I will be increasing her Seroquel to 100 mg twice a day as well as her Haldol to 6 mg twice a day. She is [place], meaning she can get injections if she refuses oral medications by court order. Increasing Seroquel to 100 mg twice a day. No side effects with the medication, no sedation, no nausea. Also introducing Depakote, discussed side effects. We will continue to work with the patient in group therapy, milieu therapy, and adjust medications as needed. JOB# [id number]
--- NOTE | 2020-02-22 21:21 | Internal Medicine Prog Note ---
Internal Medicine Subjective - Subjective Service Date: 02/22/20 Patient seen and examined:: without staff (patient noted to have fevers. no cough, no sob, no sore throat) Patient is:: awake, interactive, in bed Per staff patient has:: no adverse event, no episodes of fall (no fevers, no cough, no sob) Internal Medicine Objective - Results Result Diagrams: 02/06/20 11:17 02/18/20 05:39 Recent Labs: Laboratory Last Values WBC 11.3 K/uL (4.8-10.8) H 02/06/20 11:17 RBC 4.95 MIL/uL (4.2-6.2) 02/06/20 11:17 Hgb 15.8 g/dL (12.0-16.0) 02/06/20 11:17 Hct 46.3 % (36-48) 02/06/20 11:17 MCV 94 fL (79.0-98.0) 02/06/20 11:17 MCH 32 pg (27-31) H 02/06/20 11:17 MCHC 34 % (32-36) 02/06/20 11:17 RDW 13.3 % (9.0-15.0) 02/06/20 11:17 Plt Count 228 K/uL (130-430) 02/06/20 11:17 MPV 10.7 fl (7.4-10.4) H 02/06/20 11:17 Neut % (Auto) 75.8 % (40-70) H 02/06/20 11:17 Lymph % (Auto) 15.2 % (20.5-51.5) L 02/06/20 11:17 [place] % (Auto) 7.3 % (1.7-9.3) 02/06/20 11:17 Eos % (Auto) 1.2 % (0-4) 02/06/20 11:17 Baso % (Auto) 0.5 % (0.0-2.0) 02/06/20 11:17 Neut # (Auto) 8.5 K/uL (1.8-7.7) H 02/06/20 11:17 Lymph # (Auto) 1.7 K/uL (1.0-5.5) 02/06/20 11:17 [place] # (Auto) 0.8 K/uL (0.0-1.0) 02/06/20 11:17 Eos # (Auto) 0.1 K/uL (0.0-0.4) 02/06/20 11:17 Baso # (Auto) 0.1 K/uL (0.0-0.2) 02/06/20 11:17 Sodium 141 mmol/L (136-145) 02/18/20 05:39 Potassium 3.9 mmol/L (3.5-5.1) 02/18/20 05:39 Chloride 104 mmol/L (98-107) 02/18/20 05:39 Carbon Dioxide 29 mmol/L (23-29) 02/18/20 05:39 Anion Gap 12 (5-15) 02/18/20 05:39 BUN 33 mg/dL (8-21) H 02/18/20 05:39 Creatinine 1.41 mg/dL (0.70-1.30) H 02/18/20 05:39 Glucose 98 mg/dL (70-99) 02/18/20 05:39 POC Glucose 98 MG/DL (70 - 105) 02/22/20 06:07 Calcium 9.7 mg/dL (8.4-10.2) 02/18/20 05:39 Total Bilirubin 0.9 mg/dL (0.0-1.0) 02/06/20 11:17 AST 33 U/L (10-37) 02/06/20 11:17 ALT 25 U/L (12-78) 02/06/20 11:17 Alkaline Phosphatase 89 U/L (46-116) 02/06/20 11:17 Total Protein 7.6 g/dL (6.4-8.3) 02/06/20 11:17 Albumin 3.8 g/dL (3.4-5.0) 02/06/20 11:17 Triglycerides 100 mg/dL (<150) 02/04/20 12:16 Cholesterol 152 mg/dL (<200) 02/04/20 12:16 LDL Cholesterol Direct 90 mg/dL (75-193) 02/04/20 12:16 HDL Cholesterol 41 mg/dL (23-92) 02/04/20 12:16 Urine Color YELLOW (YELLOW) 02/06/20 11:00 Urine Clarity HAZY (CLEAR) H 02/06/20 11:00 Urine pH 6.0 (5.0-8.0) 02/06/20 11:00 Ur Specific [place] >=1.030 (1.005-1.030) H 02/06/20 11:00 Urine Protein 1+ (NEGATIVE) H 02/06/20 11:00 Urine Ketones 3+ (NEGATIVE) H 02/06/20 11:00 Urine Blood TRACE (NEGATIVE) H 02/06/20 11:00 Urine Nitrate NEGATIVE (NEGATIVE) 02/06/20 11:00 Urine Bilirubin 1+ (NEGATIVE) H 02/06/20 11:00 Urine Urobilinogen 0.2 (0.2-1.0) 02/06/20 11:00 Ur Leukocyte Esterase NEGATIVE (NEGATIVE) 02/06/20 11:00 Urine Glucose NEGATIVE (NEGATIVE) 02/06/20 11:00 Coronavirus (PCR) Negative (Negative) 02/05/20 15:45 - Physical Exam Vitals and I&O: Vital Signs Temp 101.3 F 02/22/20 14:00 Pulse 103 02/22/20 14:00 Resp 18 02/22/20 14:00 BP 104/66 02/22/20 14:00 Pulse Ox 91 02/22/20 14:00 Intake & Output 02/22/20 02/22/20 02/23/20 06:59 18:59 06:59 Intake Total 480 300 Balance 480 300 Intake: Oral 480 300 Other: # Voids 1 3 # Bowel Movements 0 Active Medications: Current Medications Acetaminophen (Tylenol) 650 mg PO Q4H PRN PRN Reason: Pain (Mild 1-3) Stop: 04/04/20 00:26 Last Admin: 02/22/20 16:54 Dose: 650 mg Al Hydrox/Mg Hydrox/Simethicone (Maalox) 30 ml PO Q4HR PRN PRN Reason: GI DISTRESS Stop: 04/04/20 00:26 Benztropine Mesylate (Cogentin) 0.5 mg PO BID ASIF Stop: 04/13/20 16:59 Last Admin: 02/22/20 16:54 Dose: 0.5 mg Benztropine Mesylate (Cogentin) 0.5 mg IM BID PRN PRN Reason: EPS (TO GIVE WITH HALDOL IM) Stop: 04/13/20 14:25 Dextrose (Glutose 40%) 18.75 gm PO PRN PRN PRN Reason: BS Below 70 if tolerate po Stop: 04/04/20 01:51 Divalproex Sodium (Depakote Dr) 250 mg PO Q8HR [facility]; Protocol Stop: 04/22/20 12:59 Last Admin: 02/22/20 13:37 Dose: 250 mg Glucagon (Glucagen) 1 mg IM PRN PRN PRN Reason: BS Below 70 if not tolerate po Stop: 04/04/20 01:51 Haloperidol Lactate (Haldol) 6 mg IM BID PRN PRN Reason: Agitation if pt refused po Stop: 04/13/20 14:18 Haloperidol Lactate (Haldol Concentrate 10mg/5ml Susp) 6 mg PO BID [facility]; Protocol Stop: 04/22/20 08:59 Last Admin: 02/22/20 16:54 Dose: 6 mg Insulin Human Lispro (Humalog Insulin Sliding Scale) 0 units SUBQ QDAC [facility]; Protocol Stop: 04/17/20 07:29 Last Admin: 02/22/20 06:35 Dose: Not Given Lorazepam (Ativan) 0.5 mg PO Q4HR PRN; Protocol PRN Reason: Agitation Stop: 03/05/20 00:26 Last Admin: 02/21/20 08:21 Dose: 0.5 mg Magnesium Hydroxide (Milk Of Magnesia) 30 ml PO HS PRN PRN Reason: Constipation Multivitamins/Vitamin C (Theragran) 1 tab PO DAILY ASIF Stop: 04/04/20 08:59 Last Admin: 02/22/20 09:37 Dose: 1 tab Quetiapine Fumarate (Seroquel) 100 mg PO BID [facility] Stop: 04/22/20 08:59 Last Admin: 02/22/20 16:54 Dose: 100 mg Zolpidem Tartrate (Ambien) 5 mg PO HS PRN PRN Reason: Insomnia Stop: 04/04/20 00:26 Last Admin: 02/15/20 21:20 Dose: 5 mg General: weak HEENT: NC/AT, PERRLA Neck: Supple Lungs: CTAB Cardiovascular: RRR, Normal S1, Normal S2 Abdomen: soft, +GT - discharge Extremities: clear Neurological: no change Internal Medicine Assmt/Plan - Assessment Assessment: 1. Fever 2. DM/HTN - Plan Plan: check covid-19 PCR check cbc, cmp check cxr nursing staff instructed to isolate patient continue sliding scale insulin d/w r.n. reviewed complete medical records Nutritional Asmnt/Malnutr-PDOC - Dietary Evaluation Malnutrition Findings (Please click <Entered> for more info): Nutritional Asmnt/Malnutrition Start: 02/11/20 10: 33 Text: Status: Complete Freq: Protocol: Document 02/11/20 10:33 MMTREVOR (Rec: 02/11/20 10:44 MMULN MARCEL- [id number]) Nutritional Asmnt/Malnutrition Patient General Information Nutritional Screening Low Risk Diagnosis Psychosis Pertinent Medical Hx/Surgical Hx DM, hiatal hernia Subjective Information Patient was transferred from [facility]. Current diet order providing ~ 2100 kcal, 74 gm protein, with current diet intake of 0-25% of meals, average intake ~525 kcal, 18gm protein. Current Diet Order/ Nutrition Support Regular Patient / S.O Not Indicated Pertinent Medications maalox, Glucagon, Humalog, MOM , Theragran Pertinent Labs (02/05) K 3.1 Nutritional Hx/Data Height 1.63 m Height (Calculated Centimeters) 162.6 Current Weight (lbs) 84.368 kg Weight (Calculated Kilograms) 84.4 Weight (Calculated Grams) 15509.2 [place] Body Weight 120 % [place] Body Weight 155 Body Mass Index (BMI) 31.9 Recent Weight Change No Weight Status Obese GI Symptoms GI Symptoms None Last BM not noted Difficult in: None Food Allergies No Cultural/Ethnic/Mosque Belief not indicated Usual diet at home unknown Skin Integrity/Comment: Dryness, Giorgi 21 Current %PO Negligible < 25% Estimated Nutritional Goals BEE in Kcals: Adj wt of IBW Calories/Kcals/Kg 62kg adj BW 25-30 kcal/kg Kcals Calculated ~6237-7619 kcal/day Protein: Adj wt of IBW Protein g/kgm/kg Protein Calculated ~60gm/day Fluid: ml ~5320-0146 kcal/day Nutritional Problem 1. Problem Problem Inadequate oral intake related to Etiology poor appetite aeb Signs/Symptoms: PO intake <25% of meals Intervention/Recommendation Comments 1. Continue regular diet as tolerated by patient. 2. Start Ensure Enlive TID for added calories and protein. Expected Outcomes/Goals Expected Outcomes/Goals Oral intake >75% of meals, weight stable or trend toward IBW, nutrition related labs WNL F/U MR 02/13-
[2020-02-23] MEDS: INSULIN LISPRO SLIDING SCALE 100 UNITS/ML UNIT SUBQ SCH (06:38)
[2020-02-23] MEDS: Haldol Oral Sol.(concentrate) 10 mg/5 mL Udc PO SCH (08:24)
[2020-02-23] MEDS: Multivitamin Tab PO SCH (08:25)
[2020-02-23 12:14] LABS: HEMOGLOBIN 13.7 g/dL (12.0-16.0); RED BLOOD COUNT 4.32 MIL/uL (4.2-6.2); WHITE BLOOD COUNT 3.8 K/uL (4.8-10.8)
[2020-02-23 12:15] LABS: % NEUTROPHILS 49.2 % (40-70); BASOPHILS % (AUTO) 0.5 % (0.0-2.0); EOSINOPHILS % (AUTO) 1.2 % (0-4); HEMATOCRIT 40.8 % (36-48); LYMPHOCYTES % (AUTO) 31.2 % (20.5-51.5); MEAN CORPUSCULAR HEMOGLOBIN 32 pg (27-31); MEAN CORPUSCULAR HGB CONC 34 % (32-36); MEAN CORPUSCULAR VOLUME 94 fL (79.0-98.0); MONOCYTES % (AUTO) 17.9 % (1.7-9.3); NEUTROPHILS # (AUTO) 1.9 K/uL (1.8-7.7); PLATELET COUNT 97 K/uL (130-430); RED CELL DISTRIBUTION WIDTH 13.1 % (9.0-15.0)
[2020-02-23 12:16] LABS: LYMPHOCYTES # (AUTO) 1.2 K/uL (1.0-5.5); MONOCYTES # (AUTO) 0.7 K/uL (0.0-1.0)
--- NOTE | 2020-02-23 13:47 | Internal Medicine Prog Note ---
Internal Medicine Subjective - Subjective Service Date: 02/23/20 Patient seen and examined:: without staff Patient is:: asleep, non-interactive (no fevers no cough no sob), in bed Per staff patient has:: no adverse event, no episodes of fall (no fevers, no cough, no sob) Internal Medicine Objective - Results Result Diagrams: 02/23/20 10:05 02/18/20 05:39 Recent Labs: Laboratory Last Values WBC 3.8 K/uL (4.8-10.8) L 02/23/20 10:05 RBC 4.32 MIL/uL (4.2-6.2) 02/23/20 10:05 Hgb 13.7 g/dL (12.0-16.0) 02/23/20 10:05 Hct 40.8 % (36-48) 02/23/20 10:05 MCV 94 fL (79.0-98.0) 02/23/20 10:05 MCH 32 pg (27-31) H 02/23/20 10:05 MCHC 34 % (32-36) 02/23/20 10:05 RDW 13.1 % (9.0-15.0) 02/23/20 10:05 Plt Count 97 K/uL (130-430) L 02/23/20 10:05 MPV 11.6 fl (7.4-10.4) H 02/23/20 10:05 Neut % (Auto) 49.2 % (40-70) 02/23/20 10:05 Lymph % (Auto) 31.2 % (20.5-51.5) 02/23/20 10:05 [place] % (Auto) 17.9 % (1.7-9.3) H 02/23/20 10:05 Eos % (Auto) 1.2 % (0-4) 02/23/20 10:05 Baso % (Auto) 0.5 % (0.0-2.0) 02/23/20 10:05 Neut # (Auto) 1.9 K/uL (1.8-7.7) 02/23/20 10:05 Lymph # (Auto) 1.2 K/uL (1.0-5.5) 02/23/20 10:05 [place] # (Auto) 0.7 K/uL (0.0-1.0) 02/23/20 10:05 Eos # (Auto) 0.0 K/uL (0.0-0.4) 02/23/20 10:05 Baso # (Auto) 0.0 K/uL (0.0-0.2) 02/23/20 10:05 Sodium 141 mmol/L (136-145) 02/18/20 05:39 Potassium 3.9 mmol/L (3.5-5.1) 02/18/20 05:39 Chloride 104 mmol/L (98-107) 02/18/20 05:39 Carbon Dioxide 29 mmol/L (23-29) 02/18/20 05:39 Anion Gap 12 (5-15) 02/18/20 05:39 BUN 33 mg/dL (8-21) H 02/18/20 05:39 Creatinine 1.41 mg/dL (0.70-1.30) H 02/18/20 05:39 Glucose 98 mg/dL (70-99) 02/18/20 05:39 POC Glucose 107 MG/DL (70 - 105) H 02/23/20 06:11 Calcium 9.7 mg/dL (8.4-10.2) 02/18/20 05:39 Total Bilirubin 0.9 mg/dL (0.0-1.0) 02/06/20 11:17 AST 33 U/L (10-37) 02/06/20 11:17 ALT 25 U/L (12-78) 02/06/20 11:17 Alkaline Phosphatase 89 U/L (46-116) 02/06/20 11:17 Total Protein 7.6 g/dL (6.4-8.3) 02/06/20 11:17 Albumin 3.8 g/dL (3.4-5.0) 02/06/20 11:17 Triglycerides 100 mg/dL (<150) 02/04/20 12:16 Cholesterol 152 mg/dL (<200) 02/04/20 12:16 LDL Cholesterol Direct 90 mg/dL (75-193) 02/04/20 12:16 HDL Cholesterol 41 mg/dL (23-92) 02/04/20 12:16 Urine Color YELLOW (YELLOW) 02/06/20 11:00 Urine Clarity HAZY (CLEAR) H 02/06/20 11:00 Urine pH 6.0 (5.0-8.0) 02/06/20 11:00 Ur Specific [place] >=1.030 (1.005-1.030) H 02/06/20 11:00 Urine Protein 1+ (NEGATIVE) H 02/06/20 11:00 Urine Ketones 3+ (NEGATIVE) H 02/06/20 11:00 Urine Blood TRACE (NEGATIVE) H 02/06/20 11:00 Urine Nitrate NEGATIVE (NEGATIVE) 02/06/20 11:00 Urine Bilirubin 1+ (NEGATIVE) H 02/06/20 11:00 Urine Urobilinogen 0.2 (0.2-1.0) 02/06/20 11:00 Ur Leukocyte Esterase NEGATIVE (NEGATIVE) 02/06/20 11:00 Urine Glucose NEGATIVE (NEGATIVE) 02/06/20 11:00 Coronavirus (PCR) Negative (Negative) 02/05/20 15:45 - Physical Exam Vitals and I&O: Vital Signs Temp 97.6 F 02/23/20 06:02 Pulse 93 02/23/20 06:02 Resp 18 02/23/20 08:00 BP 115/76 02/23/20 06:02 Pulse Ox 95 02/23/20 06:02 Intake & Output 02/22/20 02/23/20 02/23/20 18:59 06:59 18:59 Intake Total 300 120 Balance 300 120 Intake: Oral 300 120 Other: # Voids 3 2 # Bowel Movements 0 0 Active Medications: Current Medications Acetaminophen (Tylenol) 650 mg PO Q4H PRN PRN Reason: Pain (Mild 1-3) Stop: 04/04/20 00:26 Last Admin: 02/22/20 16:54 Dose: 650 mg Al Hydrox/Mg Hydrox/Simethicone (Maalox) 30 ml PO Q4HR PRN PRN Reason: GI DISTRESS Stop: 04/04/20 00:26 Benztropine Mesylate (Cogentin) 0.5 mg PO BID ASIF Stop: 04/13/20 16:59 Last Admin: 02/23/20 08:25 Dose: 0.5 mg Benztropine Mesylate (Cogentin) 0.5 mg IM BID PRN PRN Reason: EPS (TO GIVE WITH HALDOL IM) Stop: 04/13/20 14:25 Dextrose (Glutose 40%) 18.75 gm PO PRN PRN PRN Reason: BS Below 70 if tolerate po Stop: 04/04/20 01:51 Divalproex Sodium (Depakote Dr) 250 mg PO Q8HR [facility]; Protocol Stop: 04/22/20 12:59 Last Admin: 02/23/20 12:40 Dose: 250 mg Glucagon (Glucagen) 1 mg IM PRN PRN PRN Reason: BS Below 70 if not tolerate po Stop: 04/04/20 01:51 Haloperidol 5 mg/ Haloperidol (1 mg) 6 mg PO BID [facility] Stop: 04/23/20 16:59 Haloperidol Lactate (Haldol) 6 mg IM BID PRN PRN Reason: Agitation if pt refused po Stop: 04/13/20 14:18 Insulin Human Lispro (Humalog Insulin Sliding Scale) 0 units SUBQ QDAC [facility]; Protocol Stop: 04/17/20 07:29 Last Admin: 02/23/20 06:38 Dose: Not Given Lorazepam (Ativan) 0.5 mg PO Q4HR PRN; Protocol PRN Reason: Agitation Stop: 03/05/20 00:26 Last Admin: 02/21/20 08:21 Dose: 0.5 mg Magnesium Hydroxide (Milk Of Magnesia) 30 ml PO HS PRN PRN Reason: Constipation Multivitamins/Vitamin C (Theragran) 1 tab PO DAILY [facility] Stop: 04/04/20 08:59 Last Admin: 02/23/20 08:25 Dose: 1 tab Quetiapine Fumarate 100 mg/ (Quetiapine Fumarate 50 mg) 150 mg PO BID [facility] Stop: 04/23/20 16:59 Zolpidem Tartrate (Ambien) 5 mg PO HS PRN PRN Reason: Insomnia Stop: 04/04/20 00:26 Last Admin: 02/15/20 21:20 Dose: 5 mg General: weak HEENT: NC/AT, PERRLA Neck: Supple Lungs: CTAB Cardiovascular: RRR, Normal S1, Normal S2 Abdomen: soft, +GT - discharge Extremities: clear Neurological: no change Internal Medicine Assmt/Plan - Assessment Assessment: 1. Leukopenia 2. Fever 3. DM/HtN - Plan Plan: await covid test result check cxr start levaquin 500mg po daily nursing staff instructed to isolate patient continue sliding scale insulin d/w r.n. reviewed complete medical records Nutritional Asmnt/Malnutr-PDOC - Dietary Evaluation Malnutrition Findings (Please click <Entered> for more info): Nutritional Asmnt/Malnutrition Start: 02/11/20 10: 33 Text: Status: Complete Freq: Protocol: Document 02/11/20 10:33 KATT (Rec: 02/11/20 10:44 KATT MARCEL- [id number]) Nutritional Asmnt/Malnutrition Patient General Information Nutritional Screening Low Risk Diagnosis Psychosis Pertinent Medical Hx/Surgical Hx DM, hiatal hernia Subjective Information Patient was transferred from [facility]. Current diet order providing ~ 2100 kcal, 74 gm protein, with current diet intake of 0-25% of meals, average intake ~525 kcal, 18gm protein. Current Diet Order/ Nutrition Support Regular Patient / S.O Not Indicated Pertinent Medications maalox, Glucagon, Humalog, MOM , Theragran Pertinent Labs (02/05) K 3.1 Nutritional Hx/Data Height 1.63 m Height (Calculated Centimeters) 162.6 Current Weight (lbs) 84.368 kg Weight (Calculated Kilograms) 84.4 Weight (Calculated Grams) 41600.2 [place] Body Weight 120 % [place] Body Weight 155 Body Mass Index (BMI) 31.9 Recent Weight Change No Weight Status Obese GI Symptoms GI Symptoms None Last BM not noted Difficult in: None Food Allergies No Cultural/Ethnic/Pentecostal Belief not indicated Usual diet at home unknown Skin Integrity/Comment: Giorgi [place] 21 Current %PO Negligible < 25% Estimated Nutritional Goals BEE in Kcals: Adj wt of IBW Calories/Kcals/Kg 62kg adj BW 25-30 kcal/kg Kcals Calculated ~1555-0036 kcal/day Protein: Adj wt of IBW Protein g/kgm/kg Protein Calculated ~60gm/day Fluid: ml ~2707-1895 kcal/day Nutritional Problem 1. Problem Problem Inadequate oral intake related to Etiology poor appetite aeb Signs/Symptoms: PO intake <25% of meals Intervention/Recommendation Comments 1. Continue regular diet as tolerated by patient. 2. Start Ensure Enlive TID for added calories and protein. Expected Outcomes/Goals Expected Outcomes/Goals Oral intake >75% of meals, weight stable or trend toward IBW, nutrition related labs WNL F/U MR 02/13-
[2020-02-23] MEDS: HALOPERIDOL PO SCH (16:31)
--- NOTE | 2020-02-23 20:57 | Progress Notes ---
DATE: 02/23/2020 FOLLOWUP PROGRESS NOTE Case was discussed with staff of the patient, reviewed records. The patient continues to be psychotic, internally preoccupied. The staff report that she does take her medication. She is being briefed. No side effects with the medication, no sedation, no nausea, no extrapyramidal symptoms. Continues to be paranoid, delusional, not willing to talk, mumbling to herself. I am increasing Seroquel 250 mg twice a day. No side effects with the medication, no sedation, no nausea and no extrapyramidal symptoms. We will continue to work with the patient in group therapy, milieu therapy and adjust the medication as needed. JOB# [id number]
[2020-02-24] MEDS: INSULIN LISPRO SLIDING SCALE 100 UNITS/ML UNIT SUBQ SCH (06:35)
[2020-02-24] MEDS: Multivitamin Tab PO SCH (08:36)
[2020-02-24] MEDS: HALOPERIDOL PO SCH ×2 (08:36→16:18)
--- NOTE | 2020-02-24 13:39 | Internal Medicine Prog Note ---
Internal Medicine Subjective - Subjective Service Date: 02/24/20 Patient seen and examined:: without staff (somnolent. denies any fevers, no cough, no sob) Patient is:: asleep, non-interactive (no fevers no cough no sob), in bed Per staff patient has:: no adverse event, no episodes of fall (no fevers, no cough, no sob) Internal Medicine Objective - Results Result Diagrams: 02/23/20 10:05 02/18/20 05:39 Recent Labs: Laboratory Last Values WBC 3.8 K/uL (4.8-10.8) L 02/23/20 10:05 RBC 4.32 MIL/uL (4.2-6.2) 02/23/20 10:05 Hgb 13.7 g/dL (12.0-16.0) 02/23/20 10:05 Hct 40.8 % (36-48) 02/23/20 10:05 MCV 94 fL (79.0-98.0) 02/23/20 10:05 MCH 32 pg (27-31) H 02/23/20 10:05 MCHC 34 % (32-36) 02/23/20 10:05 RDW 13.1 % (9.0-15.0) 02/23/20 10:05 Plt Count 97 K/uL (130-430) L 02/23/20 10:05 MPV 11.6 fl (7.4-10.4) H 02/23/20 10:05 Neut % (Auto) 49.2 % (40-70) 02/23/20 10:05 Lymph % (Auto) 31.2 % (20.5-51.5) 02/23/20 10:05 [place] % (Auto) 17.9 % (1.7-9.3) H 02/23/20 10:05 Eos % (Auto) 1.2 % (0-4) 02/23/20 10:05 Baso % (Auto) 0.5 % (0.0-2.0) 02/23/20 10:05 Neut # (Auto) 1.9 K/uL (1.8-7.7) 02/23/20 10:05 Lymph # (Auto) 1.2 K/uL (1.0-5.5) 02/23/20 10:05 [place] # (Auto) 0.7 K/uL (0.0-1.0) 02/23/20 10:05 Eos # (Auto) 0.0 K/uL (0.0-0.4) 02/23/20 10:05 Baso # (Auto) 0.0 K/uL (0.0-0.2) 02/23/20 10:05 Sodium 141 mmol/L (136-145) 02/18/20 05:39 Potassium 3.9 mmol/L (3.5-5.1) 02/18/20 05:39 Chloride 104 mmol/L (98-107) 02/18/20 05:39 Carbon Dioxide 29 mmol/L (23-29) 02/18/20 05:39 Anion Gap 12 (5-15) 02/18/20 05:39 BUN 33 mg/dL (8-21) H 02/18/20 05:39 Creatinine 1.41 mg/dL (0.70-1.30) H 02/18/20 05:39 Glucose 98 mg/dL (70-99) 02/18/20 05:39 POC Glucose 95 MG/DL (70 - 105) 02/24/20 06:16 Calcium 9.7 mg/dL (8.4-10.2) 02/18/20 05:39 Total Bilirubin 0.9 mg/dL (0.0-1.0) 02/06/20 11:17 AST 33 U/L (10-37) 02/06/20 11:17 ALT 25 U/L (12-78) 02/06/20 11:17 Alkaline Phosphatase 89 U/L (46-116) 02/06/20 11:17 Total Protein 7.6 g/dL (6.4-8.3) 02/06/20 11:17 Albumin 3.8 g/dL (3.4-5.0) 02/06/20 11:17 Triglycerides 100 mg/dL (<150) 02/04/20 12:16 Cholesterol 152 mg/dL (<200) 02/04/20 12:16 LDL Cholesterol Direct 90 mg/dL (75-193) 02/04/20 12:16 HDL Cholesterol 41 mg/dL (23-92) 02/04/20 12:16 Urine Color YELLOW (YELLOW) 02/06/20 11:00 Urine Clarity HAZY (CLEAR) H 02/06/20 11:00 Urine pH 6.0 (5.0-8.0) 02/06/20 11:00 Ur Specific [place] >=1.030 (1.005-1.030) H 02/06/20 11:00 Urine Protein 1+ (NEGATIVE) H 02/06/20 11:00 Urine Ketones 3+ (NEGATIVE) H 02/06/20 11:00 Urine Blood TRACE (NEGATIVE) H 02/06/20 11:00 Urine Nitrate NEGATIVE (NEGATIVE) 02/06/20 11:00 Urine Bilirubin 1+ (NEGATIVE) H 02/06/20 11:00 Urine Urobilinogen 0.2 (0.2-1.0) 02/06/20 11:00 Ur Leukocyte Esterase NEGATIVE (NEGATIVE) 02/06/20 11:00 Urine Glucose NEGATIVE (NEGATIVE) 02/06/20 11:00 Coronavirus (PCR) Negative (Negative) 02/05/20 15:45 - Physical Exam Vitals and I&O: Vital Signs Temp 98.0 F 02/24/20 05:59 Pulse 74 02/24/20 05:59 Resp 20 02/24/20 05:59 BP 99/66 02/24/20 05:59 Pulse Ox 95 02/24/20 05:59 Intake & Output 02/23/20 02/24/20 02/24/20 18:59 06:59 18:59 Intake Total 1000 Balance 1000 Intake: Oral 1000 Other: # Voids 4 # Bowel Movements 1 Active Medications: Current Medications Acetaminophen (Tylenol) 650 mg PO Q4H PRN PRN Reason: Pain (Mild 1-3) Stop: 04/04/20 00:26 Last Admin: 02/22/20 16:54 Dose: 650 mg Al Hydrox/Mg Hydrox/Simethicone (Maalox) 30 ml PO Q4HR PRN PRN Reason: GI DISTRESS Stop: 04/04/20 00:26 Benztropine Mesylate (Cogentin) 0.5 mg PO BID ASIF Stop: 04/13/20 16:59 Last Admin: 02/24/20 08:36 Dose: 0.5 mg Benztropine Mesylate (Cogentin) 0.5 mg IM BID PRN PRN Reason: EPS (TO GIVE WITH HALDOL IM) Stop: 04/13/20 14:25 Dextrose (Glutose 40%) 18.75 gm PO PRN PRN PRN Reason: BS Below 70 if tolerate po Stop: 04/04/20 01:51 Divalproex Sodium (Depakote Dr) 250 mg PO Q8HR [facility]; Protocol Stop: 04/22/20 12:59 Last Admin: 02/24/20 05:09 Dose: 250 mg Glucagon (Glucagen) 1 mg IM PRN PRN PRN Reason: BS Below 70 if not tolerate po Stop: 04/04/20 01:51 Haloperidol 5 mg/ Haloperidol (1 mg) 6 mg PO BID [facility] Stop: 04/23/20 16:59 Last Admin: 02/24/20 08:36 Dose: 6 mg Haloperidol Lactate (Haldol) 6 mg IM BID PRN PRN Reason: Agitation if pt refused po Stop: 04/13/20 14:18 Insulin Human Lispro (Humalog Insulin Sliding Scale) 0 units SUBQ QDAC [facility]; Protocol Stop: 04/17/20 07:29 Last Admin: 02/24/20 06:35 Dose: Not Given Levofloxacin (Levaquin) 500 mg PO DAILY [facility] Stop: 04/23/20 14:59 Last Admin: 02/24/20 08:36 Dose: 500 mg Lorazepam (Ativan) 0.5 mg PO Q4HR PRN; Protocol PRN Reason: Agitation Stop: 03/05/20 00:26 Last Admin: 02/21/20 08:21 Dose: 0.5 mg Magnesium Hydroxide (Milk Of Magnesia) 30 ml PO HS PRN PRN Reason: Constipation Multivitamins/Vitamin C (Theragran) 1 tab PO DAILY ASIF Stop: 04/04/20 08:59 Last Admin: 02/24/20 08:36 Dose: 1 tab Quetiapine Fumarate (Seroquel) 200 mg PO BID [facility] Stop: 04/24/20 16:59 Zolpidem Tartrate (Ambien) 5 mg PO HS PRN PRN Reason: Insomnia Stop: 04/04/20 00:26 Last Admin: 02/15/20 21:20 Dose: 5 mg General: weak HEENT: NC/AT, PERRLA Neck: Supple Lungs: CTAB Cardiovascular: RRR, Normal S1, Normal S2 Abdomen: soft, +GT - discharge Extremities: clear Neurological: no change Internal Medicine Assmt/Plan - Assessment Assessment: 1. Fever, resolved 2. DM/HTN - Plan Plan: await covid test result continue levaquin 500 mg po daily nursing staff instructed to isolate patient continue sliding scale insulin d/w r.n. reviewed complete medical records Nutritional Asmnt/Malnutr-PDOC - Dietary Evaluation Malnutrition Findings (Please click <Entered> for more info): Nutritional Asmnt/Malnutrition Start: 02/11/20 10: 33 Text: Status: Complete Freq: Protocol: Document 02/11/20 10:33 [email or web address] (Rec: 02/11/20 10:44 [id number]) Nutritional Asmnt/Malnutrition Patient General Information Nutritional Screening Low Risk Diagnosis Psychosis Pertinent Medical Hx/Surgical Hx DM, hiatal hernia Subjective Information Patient was transferred from [facility]. Current diet order providing ~ 2100 kcal, 74 gm protein, with current diet intake of 0-25% of meals, average intake ~525 kcal, 18gm protein. Current Diet Order/ Nutrition Support Regular Patient / S.O Not Indicated Pertinent Medications maalox, Glucagon, Humalog, MOM , Theragran Pertinent Labs (02/05) K 3.1 Nutritional Hx/Data Height 1.63 m Height (Calculated Centimeters) 162.6 Current Weight (lbs) 84.368 kg Weight (Calculated Kilograms) 84.4 Weight (Calculated Grams) 71633.2 [place] Body Weight 120 % [place] Body Weight 155 Body Mass Index (BMI) 31.9 Recent Weight Change No Weight Status Obese GI Symptoms GI Symptoms None Last BM not noted Difficult in: None Food Allergies No Cultural/Ethnic/Hinduism Belief not indicated Usual diet at home unknown Skin Integrity/Comment: Dryness, Giorgi 21 Current %PO Negligible < 25% Estimated Nutritional Goals BEE in Kcals: Adj wt of IBW Calories/Kcals/Kg 62kg adj BW 25-30 kcal/kg Kcals Calculated ~2614-2699 kcal/day Protein: Adj wt of IBW Protein g/kgm/kg Protein Calculated ~60gm/day Fluid: ml ~5161-2277 kcal/day Nutritional Problem 1. Problem Problem Inadequate oral intake related to Etiology poor appetite aeb Signs/Symptoms: PO intake <25% of meals Intervention/Recommendation Comments 1. Continue regular diet as tolerated by patient. 2. Start Ensure Enlive TID for added calories and protein. Expected Outcomes/Goals Expected Outcomes/Goals Oral intake >75% of meals, weight stable or trend toward IBW, nutrition related labs WNL F/U MR 02/13-
--- NOTE | 2020-02-24 14:20 | Progress Notes ---
DATE: 02/24/2020 Case was discussed with staff of the patient, reviewed records. The patient is a little bit less angry, less irritable. However, continues to isolate herself. She continues to refuse to allow us to talk to her family. Continues to be somewhat delusional. In general, she is showing progress. She is less agitated, responding better to redirection. She has been compliant with the medication with no side effects, no sedation, no nausea, no extrapyramidal symptoms. I will be increasing her Seroquel to 200 mg twice a day to help improve her psychotic symptoms, delusional behavior, paranoia. We will continue outpatient group therapy, milieu therapy, adjust medication as needed. JOB# [id number]
[2020-02-25] MEDS: INSULIN LISPRO SLIDING SCALE 100 UNITS/ML UNIT SUBQ SCH (06:37)
[2020-02-25] MEDS: Multivitamin Tab PO SCH (08:13)
[2020-02-25] MEDS: HALOPERIDOL PO SCH ×3 (08:14→17:20)
--- NOTE | 2020-02-25 09:47 | Progress Notes ---
DATE: 02/25/2020 SUBJECTIVE: A 64-year-old female with history of schizophrenia, brought to the ER, found sleeping in someone's garage, brought back for management for aggressive behaviors. The patient noting that she made some sort of report to the [employer] when I go to see her. Unfortunately, she does not want to engage with me. Discussed with staff, chart review. The patient apparently still psychotic, delusional, poor insight, still talking about the FBI, believing that the staffs are pedophilic, ongoing concerns about pedophilia. The patient had to be ____, so she is getting her medications against her will if she refuses. ASSESSMENT: A 64-year-old female with ongoing delusions, behavioral disturbances. I tried to engage with her, unfortunately, she is still delusional and rejects talking to me for the most part. PLAN: We will continue to monitor ongoing symptoms, psychotic symptoms. JOB# [id number]
[2020-02-25] MEDS ORDERED: INSULIN LISPRO SLIDING SCALE 100 UNITS/ML UNIT SUBQ SCH (19:37)
[2020-02-25] MEDS ORDERED: Magnesium Hydroxide (MOM) 30 mL UDC PO PRN (19:37)
[2020-02-25] MEDS ORDERED: Multivitamin Tab PO SCH (19:37)
--- NOTE | 2020-02-27 13:20 | Discharge Summary ---
DATE OF DISCHARGE: 02/25/2020 IDENTIFYING INFORMATION: The patient is a 64-year-old female. HISTORY OF PRESENT ILLNESS: The patient with a history of schizophrenia. The patient was brought from the Emergency Room after medically clear at [facility]. The patient was not staying at home. She was found sleeping in someone's garage, brought back for management of her aggressive behavior. The patient reports that COVID ____ I have reported this to the FBI and they are underway. The patient was psychotic, delusional, refused to allow us to talk to her family. COURSE IN THE HOSPITAL: The patient was diagnosed with schizoaffective disorder. The patient was started on medication and the patient was refusing to take her medication. The patient was on Seroquel and had to release her and it was upheld and I started the patient on Haldol and the dose was increased over the course of her stay to 200 mg twice a day. Also, continue with the Haldol IM to take oral if she does refuse to take it IM. The patient, however, started taking medication she will take anything IM, however, the patient developed COVID-19 and was transferred to [facility]Surg unit. CONDITION ON DISCHARGE: The patient continues to be delusional, paranoid, though she was showing some progress. She was taking her medication. The patient is unable to take care of her ADLs because of her delusions and not socializing because of paranoia, delusions. FINAL DIAGNOSIS: Schizoaffective disorder, bipolar type. MEDICAL DIAGNOSIS: COVID-19 and as per medical doctor. The patient will follow up upon discharge with psychiatrist and primary care physician and therapist. EXPECTED OUTCOME: Hopefully, stable, if the patient complies to above. JOB# [id number]
== END 2020-02-25 14:00 | disposition short-term general hospital (02) | DRG 885 ==
LOC: GERO 22:33 → UNDODISIN 02-25 17:30
PROVIDERS: ADMIT Psychiatry & Neurology Psychiatry; ATTEND Psychiatry & Neurology Psychiatry
DX: F20.9 Schizophrenia, unspecified (principal); U07.1 COVID-19; N39.0 Urinary tract infection, site not specified; F30.9 Manic episode, unspecified; E11.9 Type 2 diabetes mellitus without complications; F41.9 Anxiety disorder, unspecified; F10.10 Alcohol abuse, uncomplicated; F12.10 Cannabis abuse, uncomplicated; I10 Essential (primary) hypertension; E87.6 Hypokalemia
CPT/HCPCS: 36415-UA; 80048-TC; 80053-TC; 80061-TC; 81003-TC; 82948-90; 83036-90; 85025-TC; 97530; J1630; J2060; U0003-CS; X3904; Z7610